=== PATIENT | female | born 1945 | race Caucasian/White ===

== ENCOUNTER 2020-08-12 09:06 | Outpatient (REF) | payer MEDICARE, SELFPAY ==
[2020-08-12 11:48] LABS: Anion Gap 15 (12-20); Blood Urea Nitrogen 26 mg/dL (9-16); Calcium 8.3 mg/dL (8.4-10.2); Carbon Dioxide 27 mmol/L (22-29); Chloride 103 mmol/L (96-108); Estimated Glomerular Filt Rate 37; Glucose Random 146 mg/dL (60-115); Potassium 4.9 mmol/L (3.3-5.1); Sodium 140 mmol/L (135-145)
[2020-08-12 13:03] LABS: Estimated Average Glucose 163 mg/dL; Hemoglobin A1C 203.0526 umol/L; Hemoglobin A1c % 7.3 %
[2020-08-13 21:52] LABS: LDL Cholesterol Direct 82 mg/dL (<100)
== END 2020-08-12 09:07 | disposition home or self-care (01) ==
LOC: HO.HMGCLDS 09:06
PROVIDERS: PCP Internal Medicine; Visit Provider Internal Medicine
DX: E03.9 Hypothyroidism, unspecified (principal); E78.9 Disorder of lipoprotein metabolism, unspecified; I10 Essential (primary) hypertension
CPT/HCPCS: 36415; 80048; 83036; 83721; 84443

== ENCOUNTER 2020-12-22 08:01 | Outpatient (REF) | payer MEDICARE, SELFPAY ==
[2020-12-22 11:40] LABS: Estimated Average Glucose 169 mg/dL; Hemoglobin A1c % 7.5 %
[2020-12-22 11:53] LABS: Alanine Aminotransferase 78 U/L (0-31); Albumin Level 4.2 g/dL (3.5-5.0); Alkaline Phosphatase 127 U/L (39-117); Anion Gap 16 (12-20); Aspartate Amino Transferase 51 U/L (5-31); Bilirubin Total 0.8 mg/dL (0.0-1.0); Blood Urea Nitrogen 26 mg/dL (9-16); Calcium 8.7 mg/dL (8.4-10.2); Carbon Dioxide 22 mmol/L (22-29); Chloride 105 mmol/L (96-108); Cholesterol 283 mg/dL; Estimated Glomerular Filt Rate 33; Glucose Fasting 147 mg/dL (60-99); HDL Cholesterol 42 mg/dL; LDL Cholesterol Calculated 193 mg/dl; Sodium 138 mmol/L (135-145); Total Protein 7.2 g/dL (6.5-8.0); Triglycerides 244 mg/dL
== END 2020-12-22 08:02 | disposition home or self-care (01) ==
LOC: HO.HMGCLDS 08:01
PROVIDERS: PCP Internal Medicine; Visit Provider Internal Medicine
DX: E03.9 Hypothyroidism, unspecified (principal); E13.9 Other specified diabetes mellitus without complications; E78.9 Disorder of lipoprotein metabolism, unspecified; I10 Essential (primary) hypertension
CPT/HCPCS: 36415; 80053; 80061; 83036; 84443

== ENCOUNTER → 2021-01-12 14:26 | Outpatient (BNVA) | payer MEDICARE, SELFPAY | PROVIDERS: PCP Internal Medicine; Referring Provider Internal Medicine; Visit Provider Internal Medicine Cardiovascular Disease | DX: I25.10 Atherosclerotic heart disease of native coronary artery without angina pectoris (principal); I10 Essential (primary) hypertension | CPT/HCPCS: 93005; 99212 ==

== ENCOUNTER 2021-01-14 16:19 | Outpatient (REF) | payer MEDICARE, SELFPAY | END 2021-01-14 16:20 | disposition home or self-care (01) | LOC: HO.LNP 16:19 | PROVIDERS: Visit Provider Hospitalist | DX: R30.0 Dysuria (principal) | CPT/HCPCS: 87086 ==

== ENCOUNTER 2021-11-01 08:38 | Outpatient (REF) | payer MEDICARE, SELFPAY ==
[2021-11-01 11:59] LABS: Estimated Average Glucose 137 mg/dL; Hemoglobin A1c % 6.4 %
[2021-11-01 12:13] LABS: TSH reflex Free T4 0.83 uIU/mL (0.32-4.0)
[2021-11-01 12:17] LABS: Alanine Aminotransferase 19 U/L (0-31); Albumin Level 4.1 g/dL (3.5-5.0); Alkaline Phosphatase 108 U/L (39-117); Anion Gap 11 (12-20); Aspartate Amino Transferase 23 U/L (5-31); Bilirubin Total 0.8 mg/dL (0.0-1.0); Blood Urea Nitrogen 20 mg/dL (9-16); Calcium 8.9 mg/dL (8.4-10.2); Carbon Dioxide 26 mmol/L (22-29); Chloride 105 mmol/L (96-108); Estimated Glomerular Filt Rate 46; Glucose Random 131 mg/dL (60-115); Potassium 4.2 mmol/L (3.3-5.1); Sodium 138 mmol/L (135-145)
== END 2021-11-01 08:39 | disposition home or self-care (01) ==
LOC: HO.HMGCLDS 08:38
PROVIDERS: PCP Internal Medicine; Visit Provider Internal Medicine
DX: E13.9 Other specified diabetes mellitus without complications (principal); E03.9 Hypothyroidism, unspecified; E78.9 Disorder of lipoprotein metabolism, unspecified; I10 Essential (primary) hypertension; R74.8 Abnormal levels of other serum enzymes; R79.89 Other specified abnormal findings of blood chemistry
CPT/HCPCS: 36415; 80053; 83036; 84443

== ENCOUNTER 2022-02-13 20:01 | Emergency (ER) | payer MEDICARE, SELFPAY ==
--- NOTE | ~2022-02-13 | US_ITS ---
EXAMINATION: US ABDOMEN LIMITED CLINICAL INFORMATION: Right-sided abdominal pain with elevated LFTs.. COMPARISON: CT abdomen pelvis from earlier this evening. TECHNIQUE: Real-time imaging of the gallbladder was requested. FINDINGS: The gallbladder is physiologically distended. Several small shadowing gallstones are present. There is a 1.8 cm echogenic nonshadowing focus contiguous with the gallbladder wall which either represents a prominent polyp or sludge ball. There is no gallbladder wall thickening appreciated. No pericholecystic fluid demonstrated. Negative sonographic Vanegas's sign. US/US abdomen limited IMPRESSION: -Cholelithiasis. There is no other ultrasound evidence to suggest acute cholecystitis. If clinically indicated, HIDA imaging can be obtained. -1.8 cm echogenic nonshadowing focus which appears contiguous with the gallbladder wall. This may represent a prominent polyp or possibly a sludge ball. Attention on follow-up imaging recommended.
--- NOTE | ~2022-02-13 | CT_ITS ---
CT/CT abdomen pelvis wo con IMPRESSION: 1. Bilateral nephrolithiasis without evidence of obstruction. 2. Distended gallbladder with cholelithiasis. 3. Other incidental findings described above. Fleischner guidelines were followed. EXAMINATION: CT ABDOMEN AND PELVIS WITHOUT CONTRAST CLINICAL INFORMATION: Right flank pain COMPARISON: Abdominal ultrasound 07/07/2015 TECHNIQUE: Multidetector volumetric imaging was performed from the superior aspect of the liver through the pubic symphysis. Sagittal and coronal reformatted images were obtained on the technologist's workstation. This CT examination was performed using dose optimization techniques as appropriate, variously including the following: *Automated exposure control *Adjustment of mA and/or kV according to patient size (this includes techniques or standardized protocols for targeted exams where dose is matched to indication/reason for exam; i.e. extremities or head) *Use of iterative reconstruction technique DLP: 891 mGy-cm FINDINGS: LUNG BASES: The visualized lung bases are unremarkable. A tiny pericardial effusion is present. Bibasilar scarring is present. LIVER, GALLBLADDER, AND BILIARY TREE: The liver is normal in size, shape, and attenuation. No focal hepatic lesion or biliary ductal dilatation is present. The gallbladder is distended with some tiny layering high density stones without pericholecystic inflammatory changes. Cholelithiasis was noted at the time of the 2014 ultrasound study. PANCREAS: Unremarkable. SPLEEN: Unremarkable. ADRENAL GLANDS: Unremarkable. KIDNEYS AND URETERS: The kidneys are normal in size, shape, and attenuation. Bilateral nephrolithiasis is present with multiple punctate-sized stones bilaterally. No hydronephrosis, hydroureter, or ureteral calculi seen. No perinephric stranding. BLADDER: Unremarkable. GASTROINTESTINAL TRACT: The small and large bowel are unremarkable. The appendix is unremarkable aside from the presence of an appendicolith at its base. Distally, it is filled with air and not obstructed. ABDOMINAL WALL: No significant hernia is appreciated. LYMPH NODES: Normal. VASCULAR: Unremarkable. PELVIC VISCERA: Normal anteverted uterus is present. An abnormal adnexal mass or free intraperitoneal fluid is not seen. OSSEOUS STRUCTURES: Degenerative changes are present throughout the spine with grade 1 anterolisthesis of L4 upon L5. No pars defects are seen.
[2022-02-13 20:08] VITALS: BP 165/67; BP 170/80; PULSE 75; PULSE 79; RESP 18; TEMP 37.1; O2SAT 97; O2SAT 99; BMI 34.5
--- NOTE | 2022-02-13 20:10 | ECG_ITS ---
Test Reason : cp Blood Pressure : / mmHG Vent. Rate : 077 BPM Atrial Rate : 077 BPM P-R Int : 144 ms QRS Dur : 090 ms QT Int : 378 ms P-R-T Axes : 039 015 113 degrees QTc Int : 427 ms Normal sinus rhythm Possible Inferior infarct , age undetermined Cannot rule out Anterior infarct , age undetermined T wave abnormality, consider lateral ischemia Abnormal ECG No previous ECGs available Referred By: Samanta Bonilla Electronically Signed By:KOLE RODRIGUEZ
--- NOTE | 2022-02-13 20:13 | ED_ITS ---
HPI - Abdominal Pain General Chief Complaint: Abdominal Pain Stated Complaint: back/abdominal pain Time Seen by Provider: 02/13/22 20:02 Source: patient and EMS Mode of arrival: EMS Limitations: no limitations History of Present Illness HPI narrative: Patient comes to the emergency room complaining of right-sided flank pain that started approximately 7 hours ago. Patient states that she has had kidney stones in the past, feels similar but this time she has no hematuria. Patient denies fever chills, complaining of nausea and vomiting, no diarrhea, no abdominal pain. Related Data Home Medications Medication Instructions Recorded Confirmed aspirin 81 mg tablet,delayed 162 mg PO DAILY 01/12/21 11/08/21 release (Adult Low Dose Aspirin) Previous Rx's Medication Instructions Recorded hydrochlorothiazide 12.5 mg capsule 12.5 mg PO DAILY #90 caps 06/08/21 Synthroid 88 mcg tablet 88 mcg PO DAILY 90 days #90 tabs 07/25/21 (levothyroxine) losartan 100 mg tablet 100 mg PO DAILY 90 days #90 tabs 12/05/21 atorvastatin 80 mg tablet 80 mg PO DAILY #90 tabs 12/25/21 metoprolol succinate 200 mg 200 mg PO DAILY #90 tabs 12/25/21 tablet,extended release 24 hr Allergies Allergy/AdvReac Type Severity Reaction Status Date / Time No Known Allergies Allergy Verified 02/13/22 20:08 Review of Systems Review of Systems Constitutional : No Weight loss, No Fever, No Chills, No Night Sweats, No Fatigue, No Malaise ENT/Mouth : No Hearing loss, No Ear Pain, No Nasal Congestion, No Sinus Pain, No Hoarseness, No sore throat, No Rhinorrhea, No Swallowing Difficulty Eyes: No Eye Pain, No Swelling, No Redness, No Foreign Body, No Discharge, No Vision Changes Cardiovascular : No Chest Pain, No SOB, No Dyspnea on Exertion, No Orthopnea, No Edema, No Palpitations Respiratory : No Cough, No Sputum, No Wheezing, No Smoke Exposure, No Dyspnea Gastrointestinal : Complaining of nausea and vomiting, No Diarrhea, No Constipation, No abdominal Pain, No Hematochezia, No Melena Genitourinary : no irregular bleeding, No Dysuria, No Urinary Frequency, No Hematuria, No Urinary Incontinence, No Urgency, complaining of right-sided Flank Pain, No Urinary Flow Changes, No Hesitancy Musculoskeletal : No joint pain, No Myalgias, No Joint Swelling Skin : No Skin Lesions, No rash Neuro : No Weakness, No Numbness, No Paresthesias, No Loss of Consciousness, No Dizziness, No Headache Psych : No Anxiety/Panic, No Depression, No SI/HI/AH/VH, No Social Issues, Heme/Lymph: No Bruising, No Bleeding,No Lymphadenopathy Endocrine : No Polyuria, No Polydipsia, No Temperature Intolerance [facility] Past Medical History Medical History CAD (coronary artery disease) Diabetes 1.5, managed as type 2 Hypertension, essential Hypothyroidism Lipid disorder Surgical History History of cataract surgery History of colonoscopy History of knee replacement Stented coronary artery Family History Family History Father HTN (hypertension) Myocardial infarction Mother No problems noted. Brother No problems noted. Sister No problems noted. Son No problems noted. Son No problems noted. Son No problems noted. Son No problems noted. Daughter No problems noted. Daughter No problems noted. Daughter No problems noted. Social History Social History Housing: House Alcohol intake: former Patient Tobacco Use Status: Former Tobacco user e-Cigarette/Vaping Use: Never Used Use of substances other than those prescribed or required for medical reasons: No Advance Directives: No Advance Directives Information Provided: Yes service: No Current occupational status: employed Cognitive needs: No Hearing needs: No Vision needs: Yes Physical Exam ED Vital Signs: Vital Signs - 24 hr 02/13/22 20:08 02/13/22 20:38 Temperature 98.7 F Pulse Rate 75 Respiratory Rate 18 22 H Blood Pressure 165/67 H Pulse Oximetry 97 Oxygen Delivery Method Room Air BMI result Body Mass Index 34.5 Const Other: Appearance: Alert. Oriented X3. No acute distress. Eyes: Pupils equal, round and reactive to light. ENT: Pharynx normal. Neck: Normal inspection. Neck supple. No lymph nodes noted. No crepitus CVS: Normal heart rate and rhythm. Pulses normal. Normal S1 and S2 Respiratory: No respiratory distress. Breath sounds normal. No Wheezing. No rales Abdomen: Soft and nontender. No rigidity. No distention. Tenderness to palpation the right lower quadrant and right CVA tenderness Skin: Skin warm and mildly diaphoretic. Normal skin color. Normal skin turgor. Extremities: No lower extremity edema. No Lacerations. No Rash Neuro: Oriented X 3. No motor deficit. No sensory deficit. Moving all extremities. No slurred speech. CN 2 through 12 grossly intact Psych: calm, cooperative, normal affect Course Course Course Narrative: Patient's labs and CT scan pending. Patient receiving IV fluids, morphine and Zofran. Patient states that the pain and the nausea/vomiting are well controlled. Patient likely has nephrolithiasis. Urinalysis, CT scan and chemistry pending. Sign-out given to Dr. Peter MACHUCA - Abdominal Pain Lab Data Result diagrams: 02/13/22 20:24 02/13/22 20:24 Labs: Lab Results 02/13/22 Range/Units 20:24 WBC 5.7 (4.8-10.8) X10*3/uL RBC 4.87 (4.20-5.50) X10*6/uL Hgb 14.6 (12.0-16.0) g/dl Hct 44.3 (37.0-47.0) % MCV 91.0 (80.0-98.0) fL MCH 30.0 (27.0-33.0) pg MCHC 33.0 (31.0-35.0) g/dl RDW 14.8 (11.0-16.0) % Plt Count 215 (160-400) X10*3/uL MPV 9.7 (9.4-12.3) fL Immature Gran % (Auto) 0.2 (0.0-0.4) % Neut % (Auto) 93.9 H (45-73) % Lymph % (Auto) 4.6 L (20-40) % Hodgeman % (Auto) 0.9 L (2-11) % Eos % (Auto) 0.2 (0-4) % Baso % (Auto) 0.2 (0-2) % Lymph # (Auto) 0.3 L (1.2-4.9) X10*3/uL Hodgeman # (Auto) 0.1 (0.1-1.2) X10*3/uL Eos # (Auto) 0.0 (0.0-0.4) X10*3/uL Baso # (Auto) 0.0 (0.0-0.2) X10*3/uL Abs Immat Gran (auto) 0.01 (0.00-0.03) X10*3/uL Absolute Neuts (auto) 5.4 (2.0-8.3) x10*3/uL Absolute Nucleated RBC 0.000 (0.0-0.012) X10*3/uL Nucleated RBC % (auto) 0.0 (0.0-0.2) /100WBC Smear Tech's Comments VERIFIED Discharge Plan Discharge Clinical Impression: Right flank pain Patient Disposition: Still a Patient Prescriptions: No Action hydrochlorothiazide 12.5 mg capsule 12.5 mg PO DAILY Qty: 90 3RF losartan 100 mg tablet 100 mg PO DAILY 90 Days Qty: 90 1RF atorvastatin 80 mg tablet 80 mg PO DAILY Qty: 90 3RF metoprolol succinate 200 mg tablet extended release 24 hr 200 mg PO DAILY Qty: 90 3RF levothyroxine [Synthroid] 88 mcg tablet 88 mcg PO DAILY 90 Days Qty: 90 1RF Rx Instructions: No substitution aspirin [Adult Low Dose Aspirin] 81 mg tablet,delayed release (DR/EC) 162 mg PO DAILY
[2022-02-13] MEDS: 0.9 % Sodium Chloride 1,000 ML 999 ML IVCONT (20:26)
[2022-02-13] MEDS: ondansetron HCL 4 MG/2 ML VIAL IVPUSH (20:36)
[2022-02-13 20:38] VITALS: RESP 22
[2022-02-13] MEDS: Morphine Sulfate 4 MG/ML CARTRIDGE IVPUSH (20:38)
--- NOTE | 2022-02-13 20:38 | PC.NURSE ---
20G IV placed left AC, labs drawn, NaCl running, medicated per provider order. pending CT.
[2022-02-13 20:47] LABS: Basophils Percent Auto 0.2 % (0-2); Eosinophils Percent Auto 0.2 % (0-4); Hematocrit 44.3 % (37.0-47.0); Hemoglobin 14.6 g/dl (12.0-16.0); Imm Gran Abs Auto 0.01 X10*3/uL (0.00-0.03); Imm Gran Pct Auto 0.2 % (0.0-0.4); Lymphocytes Absolute Auto 0.3 X10*3/uL (1.2-4.9); Lymphocytes Percent Auto 4.6 % (20-40); MANUAL DIFF FLAG SCAN; Mean Platelet Volume 9.7 fL (9.4-12.3); Monocytes Absolute Auto 0.1 X10*3/uL (0.1-1.2); Monocytes Percent Auto 0.9 % (2-11); Neutrophils Absolute Auto 5.4 x10*3/uL (2.0-8.3); Neutrophils Percent Auto 93.9 % (45-73); Platelet Count 215 X10*3/uL (160-400); Red Blood Count 4.87 X10*6/uL (4.20-5.50); Red Cell Distribution Width 14.8 % (11.0-16.0); SCAN SMEAR FLAG 1; White Blood Count 5.7 X10*3/uL (4.8-10.8)
[2022-02-13 21:08] LABS: SLIDE REVIEW VERIFIED
[2022-02-13 21:12] LABS: Alanine Aminotransferase 179 U/L (0-31); Albumin Level 3.8 g/dL (3.5-5.0); Alkaline Phosphatase 113 U/L (39-117); Anion Gap 16 (12-20); Aspartate Amino Transferase 275 U/L (5-31); Bilirubin Direct 1.5 mg/dL (0.0-0.5); Bilirubin Total 2.1 mg/dL (0.0-1.0); Blood Urea Nitrogen 20 mg/dL (9-16); Calcium 8.3 mg/dL (8.4-10.2); Carbon Dioxide 21 mmol/L (22-29); Chloride 107 mmol/L (96-108); Creatinine Clr Calc Pharmacy 39.7; Estimated Glomerular Filt Rate 42; Glucose Random 151 mg/dL (60-115); Lipase 51 U/L (8-78); Potassium 4.3 mmol/L (3.3-5.1); Sodium 140 mmol/L (135-145); Total Protein 6.6 g/dL (6.5-8.0)
[2022-02-13 23:02] LABS: Appearance Urine CLEAR; Color Urine DK YELLOW; Glucose Urine UA NEG (NEG); Leukocyte Esterase Urine NEG (NEG); Nitrite Urine NEG (NEG); PH 5.5 (5.0-8.0); Specific Gravity - Urine 1.025 (1.005-1.025); Urine Blood NEG (NEG); Urine Ketones 5 MG/DL (NEG); Urine Protein NEG (NEG-TRACE)
[2022-02-13 23:20] LABS: Alanine Aminotransferase 208 U/L (0-31); Albumin Level 3.7 g/dL (3.5-5.0); Alkaline Phosphatase 111 U/L (39-117); Aspartate Amino Transferase 301 U/L (5-31); Bilirubin Direct 1.8 mg/dL (0.0-0.5); Bilirubin Total 2.4 mg/dL (0.0-1.0); Total Protein 6.3 g/dL (6.5-8.0)
[2022-02-13 23:33] VITALS: BP 102/55; PULSE 86; RESP 20; O2SAT 96
--- NOTE | 2022-02-13 23:41 | PC.NURSE ---
pt a&ox3, vss, reporting small amount of pain in right lower abd, provider in room discussing treatment options.
[2022-02-13] MEDS: oxyCODONE HCl Immed Release 5 MG TABLET PO (23:50)
== END 2022-02-14 00:04 | disposition home or self-care (01) ==
PROVIDERS: Emergency Medicine; Emergency Provider Emergency Medicine; PCP Internal Medicine
DX: R10.9 Unspecified abdominal pain (principal); N20.0 Calculus of kidney; I10 Essential (primary) hypertension; E13.9 Other specified diabetes mellitus without complications; E78.5 Hyperlipidemia, unspecified; Z87.442 Personal history of urinary calculi; Z87.891 Personal history of nicotine dependence
CPT/HCPCS: 36415; 74176; 76705; 80048; 80076; 81003; 83690; 85025; 93005; 96361; 96374; 96375; 99285; J2270; J2405

== ENCOUNTER → 2022-02-15 11:06 | Outpatient (BNVA) | payer MEDICARE, SELFPAY | PROVIDERS: PCP Internal Medicine; Visit Provider Surgery | DX: K80.20 Calculus of gallbladder without cholecystitis without obstruction (principal); R74.8 Abnormal levels of other serum enzymes | CPT/HCPCS: 99202 ==

== ENCOUNTER 2022-03-05 05:50 | Day surgery (SDC) | payer MEDICARE, SELFPAY ==
[2022-02-20 15:00] VITALS: BMI 34.9
[2022-03-05] VITALS (11 sets, daily range): BP systolic 152–190; BP diastolic 54–72; PULSE 46–56; RESP 16–24; TEMP 36.2–36.4; O2SAT 97–100
[2022-03-05] MEDS: Lactated Ringers 1,000 ML 50 ML IVCONT (06:32)
[2022-03-05 06:34] LABS: Glucose, Whole Blood 99 mg/dL (60-115)
--- NOTE | 2022-03-05 07:25 | PC.NURSE ---
anesthesia made aware of high bp. no new orders.
--- NOTE | 2022-03-05 09:08 | W.PM.OPN ---
Operative Note Operative Note Date of Service: 03/05/22 Narrative: Preoperative diagnosis: Biliary colic Postoperative diagnosis: Same Procedure: Laparoscopic cholecystectomy Surgeon: Danis Alatorre MD Information Assoc: [facility] Anesthesia: General endotracheal Indications for procedure:76 year old female with complaints of pain in the epigastrium and RUQ found to have small gallstones and sludge in the gallbladder Operative findings:Chronically inflamed gallbladder, small gallstones Specimen: gallbladder Estimated blood loss:<1 ml Complications: none Procedure details: Patient was brought to the OR and placed in a supine position. After administering general anesthesia the patient's abdomen was prepped with ChloraPrep and draped in a sterile fashion. Local anesthesia consisting of 0.5% Sensorcaine without epinephrine was infiltrated in a periumbilical region. A 5 mm incision was made above the umbilicus in a transverse fashion. The Veress needle was then inserted while elevating abdominal cavity with towel clips. After positive drop test the abdomen was insufflated to a pressure of 15 mm of mercury. The Veress needle was then removed and a 5 mm trocar inserted. The camera was inserted in the abdomen explored. A 12 mm trocar was then placed in the epigastrium. Two 5 mm trocars placed in the right upper quadrant by the nursing home assistant. The patient was placed in reverse Trendelenburg positioning and rotated to the left. The gallbladder was grasped with the fundus and retracted cephalad by the nursing home assistant. The infundibulum was then grasped and retracted away from the liver bed, also by the nursing home assistant. The Dolphin dissected was then used by the surgeon to dissect the peritoneum off the infundibulum to reveal the junction with the cystic duct. Cystic artery was noted slightly medial and posterior to the cystic duct. After obtaining a critical view the cystic duct was doubly clipped and divided. The cystic artery was then doubly clipped and divided. The gallbladder was then dissected off the liver bed using electrocautery with an L hook. Hemostasis was assured all times using the electrocautery. When the gallbladder is completely dissected off the liver bed was placed in an Endo-Catch bag and brought out through the epigastric incision. The gallbladder was sent to pathology for further examination. The abdomen was then re-examined. The liver bed was irrigated and suctioned dry. No bleeding or bile leak could be identified. CO2 was then evacuated and all trocars removed. Fascia was closed at the epigastric incision using a [id number] 0 Polysorb suture. Skin was closed in all incisions using a subcuticular 4 0 Polysorb suture by both the surgeon and nursing home assistant. Sterile dressings consisting of Steri-Strips, 2 x 2 gauze, and Tegaderm were then applied. The patient tolerated the procedure well. Sponge instrument and needle counts reported as correct. The patient was transferred to PACU in stable condition.
--- NOTE | 2022-03-05 09:10 | MHC.SHP ---
Pre-Procedural Eval Section A Date of Service: 03/05/22 The patient is an INPATIENT: No Changes since office visit: Yes Patient answered all questions; No Cold of Flu in the past 2 weeks, No New Medical Problems and No Changes in Medication The History & Physical has been completed within 30 days and I have reviewed it.: Yes Section B Chief Complaint: calculus of gallbladder Allergies: Allergies Allergy/AdvReac Type Severity Reaction Status Date / Time metformin AdvReac Intermediate Diarrhea Verified 03/05/22 06:20 Plan Diagnosis/Plan: Unchanged I have reviewed the history and physical and performed a pertinent physical examination on my patient. No changes have occurred unless specified.
[2022-03-05] MEDS: oxyCODONE HCl Immed Release 5 MG TABLET PO (09:41)
--- NOTE | 2022-03-05 09:42 | HO.ANESPROP2 ---
[facility] Active Problems Active Problems: All Active Problems (Updated 03/02/22 @ 13:37 by Tyler Jones MD) Gallbladder sludge (Acute) Pre-op evaluation (Acute) LFT elevation (Acute) Elevated creatine kinase (Acute) Dysuria (Acute) Hypertensive nephropathy (Acute) CAD (coronary artery disease) (Acute) Diabetes 1.5, managed as type 2 (Acute) Hypothyroidism (Acute) Lipid disorder (Acute) Hypertension, essential (Acute) Past Medical History Medical History Abnormal ECG CAD (coronary artery disease) Diabetes 1.5, managed as type 2 Hypertension, essential Hypothyroidism Lipid disorder Myocardial infarction Renal calculi Family History Family History Father HTN (hypertension) Myocardial infarction Mother No problems noted. Brother No problems noted. Sister No problems noted. Son No problems noted. Son No problems noted. Son No problems noted. Son No problems noted. Daughter No problems noted. Daughter No problems noted. Daughter No problems noted. Family history of problems with anesthesia: No Surgical History Surgical History History of cataract surgery History of colonoscopy History of knee replacement Stented coronary artery History of Problems with Anesthesia: No Social History Social History Household Members Other:: and grandson Housing: House Are you a primary hearing care professional to a significant other at home: Yes ( is homebound) Do you presently have visiting nurse or other home services: No Alcohol intake: former Patient Tobacco Use Status: Former Tobacco user Quit Date: as teenager Tobacco use type: Cigarette e-Cigarette/Vaping Use: Never Used Use of substances other than those prescribed or required for medical reasons: No Have you been hit, kicked, punched, or otherwise hurt by someone within the past year? If so, by whom?: No Are you DNR?: No Advance Directives: No Advance Directives Information Provided: Yes (brochure mailed) Advance Directives on File: No Recently lost weight without trying: No Eating poorly because of decreased appetite: No Nutrition Risks: Surgical patient >75years Poor oral hygiene: No (has upper & lower partials) service: No Current occupational status: employed Cognitive needs: No Hearing needs: No Vision needs: Yes Meds Allergies Allergy/AdvReac Type Severity Reaction Status Date / Time metformin AdvReac Intermediate Diarrhea Verified 03/05/22 06:20 Active Medications: Current Medications Fentanyl (Fentanyl Citrate/Pf 100 Mcg/2 Ml Vial) 25 mcg IVPUSH Q5M PRN; Protocol PRN Reason: Pain, Moderate (Pain Scale 4-6 Lactated Ringer's (Lr) 1,000 mls @ 50 mls/hr IVCONT .Q20H DONY Last Admin: 03/05/22 06:32 Dose: 50 mls/hr Lactated Ringer's (Lr) 1,000 mls @ 100 mls/hr IVCONT .Q10H DONY Ondansetron HCl (Ondansetron Hcl 4 Mg/2 Ml Vial) 4 mg IVPUSH ONCE PRN PRN Reason: Nausea and Vomiting Home Medications Medication Instructions Recorded Confirmed Last Taken Type aspirin 81 mg tablet,delayed 162 mg PO DAILY 01/12/21 02/20/22 03/03/22 History release (Adult Low Dose Aspirin) Exam Exam Date and Time: March 05, 2022 0942 Height,Weight and Vital Signs: Height 5 ft 3 in Weight 89.358 kg Last Vital Signs Temp 97.1 F 03/05/22 09:14 Pulse 56 03/05/22 09:29 Resp 20 03/05/22 09:29 BP 152/66 H 03/05/22 09:29 Pulse Ox 99 03/05/22 09:29 O2 Del Method 03/05/22 09:29 O2 Flow Rate 2 03/05/22 09:19 Pertinent Lab Results Pertinent Lab Results: Laboratory Tests 03/05/22 06:30 POC Glucose 99 Airway Mallampati Class: III TM Dist: >3cm Neck ROM: Full Partial: Upper and Lower Loose/Missing/Broken Teeth: Yes, Upper and Lower Assessment and Plan Assessment Anesthesia Assessment: Anesthesia Plan Discussed and Chart Reviewed Final Anesthetic Review Family History of Problems with Anesthesia: No History of Problems with Anesthesia: No NPO: Yes ASA Class: III Final Preanesthetic Review: No Changes in Pt Med Stat, Meds/Allgs Chart Reviewed, Consent Obtained/Reviewed and Anes Risks/Benef Reviewed Patient Risk: Intermediate Procedure Risk: Intermediate Anesthetic Plan Anesthetic Plan: GA Disposition: Standard PACU
[2022-03-05] MEDS: fentaNYL citrate/PF 100 MCG/2 ML VIAL 25 MCG IVPUSH ×2 (09:44→09:49)
== END 2022-03-05 11:00 | disposition home or self-care (01) ==
PROVIDERS: PCP Internal Medicine; Visit Provider Surgery
PROC: 0FT44ZZ Resection of Gallbladder, Percutaneous Endoscopic Approach (ICD-10-PCS; CPT 47562; principal; 2022-03-05 07:30)
DX: K80.12 Calculus of gallbladder with acute and chronic cholecystitis without obstruction (principal); K82.8 Other specified diseases of gallbladder; I25.10 Atherosclerotic heart disease of native coronary artery without angina pectoris; Z98.61 Coronary angioplasty status; E13.9 Other specified diabetes mellitus without complications; I10 Essential (primary) hypertension; E03.9 Hypothyroidism, unspecified; E78.9 Disorder of lipoprotein metabolism, unspecified; R74.8 Abnormal levels of other serum enzymes; Z79.82 Long term (current) use of aspirin; Z79.899 Other long term (current) drug therapy; Z88.8 Allergy status to other drugs, medicaments and biological substances; Z87.891 Personal history of nicotine dependence
CPT/HCPCS: 47562; 82947; 88304; J0330; J1100; J2250; J2405; J2795; J3010

== ENCOUNTER 2022-07-14 10:07 | Outpatient (REF) | payer MEDICARE, SELFPAY ==
[2022-07-14 11:09] LABS: MANUAL DIFF FLAG NO
[2022-07-14 11:12] LABS: Basophils Absolute Auto 0.1 X10*3/uL (0.0-0.2); Basophils Percent Auto 0.8 % (0-2); Eosinophils Absolute Auto 0.3 X10*3/uL (0.0-0.4); Eosinophils Percent Auto 4.4 % (0-4); Hemoglobin 14.8 g/dl (12.0-16.0); Imm Gran Abs Auto 0.02 X10*3/uL (0.00-0.03); Imm Gran Pct Auto 0.3 % (0.0-0.4); Lymphocytes Absolute Auto 1.8 X10*3/uL (1.2-4.9); Lymphocytes Percent Auto 28.1 % (20-40); Mean Corpuscular HGB Conc 32.2 g/dl (31.0-35.0); Mean Corpuscular Hemoglobin 30.4 pg (27.0-33.0); Mean Corpuscular Volume 94.5 fL (80.0-98.0); Monocytes Absolute Auto 0.5 X10*3/uL (0.1-1.2); Monocytes Percent Auto 7.5 % (2-11); Neutrophils Absolute Auto 3.8 x10*3/uL (2.0-8.3); Neutrophils Percent Auto 58.9 % (45-73); Platelet Count 262 X10*3/uL (160-400); Red Blood Count 4.87 X10*6/uL (4.20-5.50); Red Cell Distribution Width 13.3 % (11.0-16.0); White Blood Count 6.4 X10*3/uL (4.8-10.8)
[2022-07-14 11:18] LABS: Estimated Average Glucose 120 mg/dL; Hemoglobin A1C 154.1947 umol/L; Hemoglobin A1c % 5.8 %
[2022-07-14 11:25] LABS: Alanine Aminotransferase 18 U/L (0-31); Albumin Level 4.3 g/dL (3.5-5.0); Alkaline Phosphatase 91 U/L (39-117); Anion Gap 13 (12-20); Aspartate Amino Transferase 24 U/L (5-31); Bilirubin Total 0.7 mg/dL (0.0-1.0); Blood Urea Nitrogen 21 mg/dL (9-16); Calcium 9.1 mg/dL (8.4-10.2); Carbon Dioxide 27 mmol/L (22-29); Chloride 105 mmol/L (96-108); Estimated Glomerular Filt Rate 40; Glucose Random 115 mg/dL (60-115); Potassium 4.9 mmol/L (3.3-5.1); Sodium 140 mmol/L (135-145); Total Protein 7.5 g/dL (6.5-8.0)
[2022-07-14 11:48] LABS: TSH reflex Free T4 3.65 uIU/mL (0.32-4.0)
== END 2022-07-14 10:08 | disposition home or self-care (01) ==
LOC: HO.HMGCLDS 10:07
PROVIDERS: PCP Internal Medicine; Visit Provider Internal Medicine
DX: E13.9 Other specified diabetes mellitus without complications (principal); E03.9 Hypothyroidism, unspecified; E78.9 Disorder of lipoprotein metabolism, unspecified; I10 Essential (primary) hypertension; R79.89 Other specified abnormal findings of blood chemistry
CPT/HCPCS: 36415; 80053; 83036; 84443; 85025

== ENCOUNTER 2023-05-21 09:51 | Outpatient (AMB) | payer MEDICARE, SELFPAY ==
--- NOTE | 2023-05-21 09:52 | A.OFFPC_ITS ---
Vital Signs 05/21/23 10:02 Height 5 ft 3 in Weight 200 lb BMI 35.4 BP 132/78 Blood Pressure Location Lt brachial Position Sitting Pulse 62 Pulse Source Pulse Oximeter Pulse Oximetry (%) 98 Oxygen Delivery Method Room Air Intake Visit Reasons: 4 month follow up Accompanied by: Spouse Allergies metformin Adverse Reaction (Intermediate, Verified 11/16/22 15:01) Diarrhea Medication List - Last Reconciled 05/21/23 by Tyler Jones MD aspirin (Adult Low Dose Aspirin) 162 mg PO DAILY hydrochlorothiazide 25 mg PO QAM losartan 100 mg PO DAILY metoprolol succinate ER 200 mg PO DAILY Synthroid (levothyroxine) 88 mcg PO DAILY 90 days NS Tobacco use date assessed: 05/21/23 Fall risk assessment: No Falls in past year Last assessed Fall Risk: 05/21/23 Dental Screening Dental Screen Date: 05/21/23 Did you have a dental visit in the last 12 months?: Yes Did you have a dental problem in the last 6 months where you did not have access to dental care?: No Was dental information given to patient?: Patient has dentist HPI 4 month follow up HPI Details Patient is 77-year-old female Patient is taking care of her who is almost wheelchair bound She comes in every 6 months with her for follow-up Patient has been stable taking all her medications offer no new complaints She has not seen Cardiology in a while, she is requesting if I can send cardiac medications She is on metoprolol which I have sent for the patient Her blood pressure is stable today at 132/78, patient is on losartan 100 mg, and hydrochlorothiazide 25 mg She is tolerating medications no side effects Patient is diet-controlled diabetic , hemoglobin A1c has been stable Hypothyroidism: TSH is stable with Synthroid 88 mcg. BMI is elevated at 35.4 patient has always been heavy And have difficulty losing weight She will return in 6 month for follow-up with her who is also a patient in our clinic [facility] Medical History Abnormal ECG Myocardial infarction Renal calculi CAD (coronary artery disease) Diabetes 1.5, managed as type 2 Hypothyroidism Lipid disorder Hypertension, essential Surgical History Hx laparoscopic cholecystectomy (03/05/22) Stented coronary artery History of knee replacement History of colonoscopy History of cataract surgery Family History Father HTN (hypertension) Myocardial infarction Mother No problems noted. Brother No problems noted. Sister No problems noted. Son No problems noted. Son No problems noted. Son No problems noted. Son No problems noted. Daughter No problems noted. Daughter No problems noted. Daughter No problems noted. Social History Household Members Other:: and grandson Housing: House Are you a primary certified social workers in health care to a significant other at home: Yes ( is homebound) Do you presently have visiting nurse or other home services: No Alcohol intake: former Patient Tobacco Use Status: Former Tobacco user Quit Date: as teenager Tobacco use type: Cigarette e-Cigarette/Vaping Use: Never Used service: No Current occupational status: employed Cognitive needs: No Hearing needs: No Vision needs: Yes Questionnaire PHQ-9 Over the last 2 weeks, how often have you been bothered by any of the following problems? 1. Little interest or pleasure in doing things: not at all 2. Feeling down, depressed, or hopeless: not at all 3. Trouble falling or staying asleep, or sleeping too much: several days 4. Feeling tired or having little energy: not at all 5. Poor appetite or overeating: not at all 6. Feeling bad about yourself - or that you are a failure or have let yourself or your family down: not at all 7. Trouble concentrating on things, such as reading the newspaper or watching television: not at all 8. Moving or speaking so slowly that other people could have noticed. Or the opposite - being so fidgety or restless that you have been moving around a lot more than usual: not at all 9. Thoughts that you would be better off or of hurting yourself in some way: not at all Total score: 1 Depression Screening Interpretation: Negative Depression Screening Done: Yes 45415 - PHQ-9 Billing: Yes Source: Developed by Drs. Willard Nathan, Baylee Yuen, Brock Hennessy and colleagues, with an educational floresita from [employer]. Thrive Questionnaire Date Thrive assessed: 05/21/23 I am a: Patient What is your living situation today?: I have a steady place to live Within the past 12 months, did the food you bought not last and you didn't have the money to get more?: Never true Within the past 12 months, did you worry whether your food would run out before you got money to buy more?: Never true Do you have trouble paying for medicines?: No Do you have trouble getting transportation to medical appointments?: No Do you have trouble paying your heating and electricity bill?: No Do you have trouble taking care of your child, family member or friend?: No Do you have trouble with day-to-day activities such as bathing, preparing meals, shopping, managing finances, etc.?: No Are you currently unemployed and looking for a job?: No Are you interested in more education?: No Please select the resources that you would like help with: None Currently or been in a relationship where the following occur: no concerns reported JERRY-7 AMB Questionnaire JERRY-7 Date JERRY - 7 assessed: 05/21/23 Feeling nervous, anxious, or on edge: 0 = Not at all Not being able to stop or control worryin = Not at all Worrying too much about different things: 0 = Not at all Trouble relaxin = Not at all Being so restless that it is hard to sit still: 0 = Not at all Becoming easily annoyed or irritable: 0 = Not at all Feeling afraid as if something awful might happen: 0 = Not at all Total JERRY-7 score (0-4 normal; 5-9 mild; 10-14 moderate; 15-21 severe): 0 Source: Developed by Drs. Willard Nathan, Baylee Yuen, Brock Hennessy and colleagues, with an educational floresita from [employer]. JERRY-7 Assessment Billing JERRY-7 Assessment Tool: JERRY-7 Assessment 39242 Review of Systems Const Denies chills and Denies fever(s) ENT Denies epistaxis and Denies nasal discharge Card Denies chest pain Resp Denies chest congestion, Denies cough and Denies hemoptysis GI Denies diarrhea and Denies nausea Skin/Breast Denies rash Neuro Reports no additional complaints Psych Reports no additional complaints Endo Reports no additional complaints Physical exam (Primary Care) Vital Signs: Last Vital Signs Pulse 62 05/21/23 10:02 BP 132/78 05/21/23 10:02 Pulse Ox 98 05/21/23 10:02 Oxygen Delivery Method Room Air 05/21/23 10:02 BMI result Body Mass Index 35.4 Tobacco/Smoking Status: Tobacco use Status Tobacco use date assessed 05/21/23 05/21/23 10:03 Patient Tobacco Use Status Former Tobacco user 05/21/23 09:52 Tobacco use type Cigarette 05/21/23 09:52 e-Cigarette/Vaping Use Never Used 05/21/23 09:52 PHQ-9: PHQ-9 Score PHQ-9: Total score 1 05/21/23 10:19 Depression Screening Interpretation: Negative Thrive Assessment: Date of Thrive Assessment Date Thrive assessed 05/21/23 05/21/23 10:05 Currently or been in a relationship where the following occur: no concerns reported Const General: cooperative, comfortable and no acute distress Orientation/consciousness: patient oriented x3 HENMT Head: Yes normocephalic Eyes General: appearance normal, both eyes and all related structures Neck Neck: Yes supple Resp Effort & Inspection: normal respiratory effort, no cough and no stridor Cardio Rhythm: regular rhythm Heart sounds: S1 normal heart sound present and S2 normal heart sound present Skin General skin exam: turgor normal Neuro General: patient oriented x3, tone normal and moves all extremities Extrem Right lower extremity: no edema Left lower extremity: no edema Assessment and Plan Assessment & Plan (1) Hypertension, essential: Code(s): I10 - Essential (primary) hypertension (2) Lipid disorder: Code(s): E78.9 - Disorder of lipoprotein metabolism, unspecified (3) Hypothyroidism: Code(s): E03.9 - Hypothyroidism, unspecified Qualifiers: Hypothyroidism type: other Qualified Code(s): E03.8 - Other specified hypothyroidism (4) Diabetes 1.5, managed as type 2: Comment: dx~2013-does not check glucose @ home-diet controlled-previously on metformin but had adverse reaction Code(s): E13.9 - Other specified diabetes mellitus without complications (5) CAD (coronary artery disease): Comment: RCA drug-eluting stent. Mid LAD 80% disease, stable without anginal symptoms. Treated medically Code(s): I25.10 - Atherosclerotic heart disease of [place] coronary artery without angina pectoris Qualifiers: Associated angina: without angina Coronary Disease-Associated Artery/Lesion type: [place] artery [place] vs. transplanted heart: [place] heart Qualified Code(s): I25.10 - Atherosclerotic heart disease of [place] coronary artery without angina pectoris (6) Hypertensive nephropathy: Code(s): I12.9 - Hypertensive chronic kidney disease with stage 1 through stage 4 chronic kidney disease, or unspecified chronic kidney disease (7) LFT elevation: Code(s): R79.89 - Other specified abnormal findings of blood chemistry Plan Patient is 77-year-old female Patient is taking care of her who is almost wheelchair bound She comes in every 6 months with her for follow-up Patient has been stable taking all her medications offer no new complaints She has not seen Cardiology in a while, she is requesting if I can send cardiac medications She is on metoprolol which I have sent for the patient She has coronary artery disease without angina and is doing well Her blood pressure is stable today at 132/78, patient is on losartan 100 mg, and hydrochlorothiazide 25 mg She is tolerating medications no side effects Patient is diet-controlled diabetic , hemoglobin A1c has been stable Hypothyroidism: TSH is stable with Synthroid 88 mcg. BMI is elevated at 35.4 patient has always been heavy And have difficulty losing weight She will return in 6 month for follow-up with her who is also a patient in our clinic Orders: Orders Hemoglobin A1c Today E03.9 - Hypothyroidism, unspecified, E13.9 - Other specified diabetes mellitus without complications, E78.9 - Disorder of lipoprotein metabolism, unspecified, I10 - Essential (primary) hypertension, I12.9 - Hypertensive chronic kidney disease with stage 1 through stage 4 chronic kidney disease, or unspecified chronic kidney disease, I25.10 - Atherosclerotic heart disease of [place] coronary artery without angina pectoris, R79.89 - Other specified abnormal findings of blood chemistry Complete Blood Count Auto Diff Today E03.9 - Hypothyroidism, unspecified, E13.9 - Other specified diabetes mellitus without complications, E78.9 - Disorder of lipoprotein metabolism, unspecified, I10 - Essential (primary) hypertension, I12.9 - Hypertensive chronic kidney disease with stage 1 through stage 4 chronic kidney disease, or unspecified chronic kidney disease, I25.10 - Atherosclerotic heart disease of [place] coronary artery without angina pectoris, R79.89 - Other specified abnormal findings of blood chemistry Microalbumin, Random (w Creat) Today E03.9 - Hypothyroidism, unspecified, E13.9 - Other specified diabetes mellitus without complications, E78.9 - Disorder of lipoprotein metabolism, unspecified, I10 - Essential (primary) hypertension, I12.9 - Hypertensive chronic kidney disease with stage 1 through stage 4 chronic kidney disease, or unspecified chronic kidney disease, I25.10 - Atherosclerotic heart disease of [place] coronary artery without angina pectoris, R79.89 - Other specified abnormal findings of blood chemistry Comprehensive [place]. Panel Fast Today E78.9 - Disorder of lipoprotein metabolism, unspecified, I10 - Essential (primary) hypertension TSH reflex Free T4 Today E03.9 - Hypothyroidism, unspecified Lipid Panel Today E78.9 - Disorder of lipoprotein metabolism, unspecified, I10 - Essential (primary) hypertension Medications: Changed From losartan Must call and make appointment with Dr. Salinas for 2022 for any future refills; call [phone]. Thank you 100 mg PO DAILY 90 tabs 1RF To losartan 100 mg PO DAILY 90 tabs 1RF From metoprolol succinate ER OVERDUE FOR APPT. PLEASE CALL [phone] TO SCHEDULE FOLLOW UP SO WE CAN CONTINUE REFILLING YOUR MEDICATIONS. 200 mg PO DAILY 30 tabs 0RF To metoprolol succinate ER 200 mg PO DAILY 90 tabs 3RF Refilled Synthroid (levothyroxine) No substitution 88 mcg PO DAILY 90 tabs 3RF 90 days NS Coding Level of Care Code Est Pt Level 4 (29488) Diagnoses Hypertension, essential I10 Lipid disorder E78.9 Other specified hypothyroidism E03.8 Hypothyroidism type: other Diabetes 1.5, managed as type 2 E13.9 Coronary artery disease involving [place] coronary artery of [place] heart without angina pectoris I25.10 Associated angina: without angina Coronary Disease-Associated Artery/Lesion type: [place] artery [place] vs. transplanted heart: [place] heart Hypertensive nephropathy I12.9 LFT elevation R79.89 Additional Codes JERRY-7 Assessment Billing - JERRY-7 Assessment Tool: JERRY-7 Assessment [id number] ([id number])
[2023-05-21 10:02] VITALS: BP 132/78; PULSE 62; O2SAT 98; BMI 35.4
== END 2023-05-21 10:29 | disposition home or self-care (01) ==
PROVIDERS: Visit Provider Internal Medicine
DX: I10 Essential (primary) hypertension (principal); E78.9 Disorder of lipoprotein metabolism, unspecified; E03.8 Other specified hypothyroidism; E13.9 Other specified diabetes mellitus without complications; I25.10 Atherosclerotic heart disease of native coronary artery without angina pectoris; R79.89 Other specified abnormal findings of blood chemistry
CPT/HCPCS: 99214

== ENCOUNTER 2023-05-21 10:31 | Outpatient (REF) | payer MEDICARE, SELFPAY ==
[2023-05-21 13:26] LABS: MANUAL DIFF FLAG NO
[2023-05-21 14:01] LABS: Estimated Average Glucose 140 mg/dL; Hemoglobin A1c % 6.5 % (<6.0)
[2023-05-21 14:09] LABS: Basophils Absolute Auto 0.1 X10*3/uL (0.0-0.2); Basophils Percent Auto 0.8 % (0-2); Eosinophils Absolute Auto 0.2 X10*3/uL (0.0-0.4); Eosinophils Percent Auto 3.6 % (0-4); Hematocrit 47.5 % (37.0-47.0); Hemoglobin 15.3 g/dl (12.0-16.0); Imm Gran Abs Auto 0.02 X10*3/uL (0.00-0.03); Imm Gran Pct Auto 0.3 % (0.0-0.4); Lymphocytes Absolute Auto 1.3 X10*3/uL (1.2-4.9); Lymphocytes Percent Auto 20.2 % (20-40); Mean Corpuscular HGB Conc 32.2 g/dl (31.0-35.0); Mean Corpuscular Hemoglobin 30.1 pg (27.0-33.0); Mean Corpuscular Volume 93.5 fL (80.0-98.0); Mean Platelet Volume 10.1 fL (9.4-12.3); Monocytes Absolute Auto 0.5 X10*3/uL (0.1-1.2); Monocytes Percent Auto 7.4 % (2-11); Neutrophils Absolute Auto 4.4 x10*3/uL (2.0-8.3); Neutrophils Percent Auto 67.7 % (45-73); Platelet Count 273 X10*3/uL (160-400); Red Blood Count 5.08 X10*6/uL (4.20-5.50); Red Cell Distribution Width 14.2 % (11.0-16.0); White Blood Count 6.5 X10*3/uL (4.8-10.8)
[2023-05-21 14:28] LABS: Alanine Aminotransferase 44 U/L (0-31); Albumin Level 4.3 g/dL (3.5-5.0); Alkaline Phosphatase 84 U/L (39-117); Anion Gap 13 (12-20); Aspartate Amino Transferase 38 U/L (5-31); Bilirubin Total 0.6 mg/dL (0.0-1.0); Blood Urea Nitrogen 17 mg/dL (9-16); Carbon Dioxide 26 mmol/L (22-29); Chloride 104 mmol/L (96-108); Cholesterol 332 mg/dL (<200); Estimated Glomerular Filt Rate 37; Glucose Fasting 128 mg/dL (60-99); Glucose Random 128 mg/dL (60-115); HDL Cholesterol 50 mg/dL (>40); LDL Cholesterol Calculated 236 mg/dL (<100); Potassium 4.5 mmol/L (3.3-5.1); Sodium 138 mmol/L (135-145); TSH reflex Free T4 3.46 uIU/mL (0.32-4.0); Total Protein 7.8 g/dL (6.5-8.0); Triglycerides 234 mg/dL (<150)
[2023-05-21 14:48] LABS: Microalbum/Creatinine Ratio Ur 21.1 ug/mg cr (<30)
== END 2023-05-21 10:32 | disposition home or self-care (01) ==
LOC: HO.HMGCLDS 10:31
PROVIDERS: PCP Internal Medicine; Visit Provider Internal Medicine
DX: E78.9 Disorder of lipoprotein metabolism, unspecified (principal); E03.9 Hypothyroidism, unspecified; I25.10 Atherosclerotic heart disease of native coronary artery without angina pectoris; I12.9 Hypertensive chronic kidney disease with stage 1 through stage 4 chronic kidney disease, or unspecified chronic kidney disease; E11.22 Type 2 diabetes mellitus with diabetic chronic kidney disease; N18.9 Chronic kidney disease, unspecified; R79.89 Other specified abnormal findings of blood chemistry
CPT/HCPCS: 36415; 80053; 80061; 82043; 82570; 83036; 84443; 85025

== ENCOUNTER 2023-11-19 09:50 | Outpatient (AMB) | payer MEDICARE, SELFPAY ==
[2023-11-19 09:52] VITALS: BP 128/76; PULSE 69; O2SAT 96; BMI 36.6
--- NOTE | 2023-11-19 09:52 | MHC.PC.OV ---
Vital Signs 11/19/23 09:52 Height 5 ft 3 in Weight 206 lb 8 oz BMI 36.6 BP 128/76 Blood Pressure Location Lt brachial Pulse 69 Pulse Source Pulse Oximeter Pulse Oximetry (%) 96 Oxygen Delivery Method Room Air Intake Visit Reasons: 6 month fu Allergies metformin Adverse Reaction (Intermediate, Verified 11/19/23 09:53) Diarrhea Medication List - Last Reconciled 11/19/23 by Tyler Jones MD aspirin (Adult Low Dose Aspirin) 162 mg PO DAILY losartan 100 mg PO DAILY metoprolol succinate ER 200 mg PO DAILY Synthroid (levothyroxine) 88 mcg PO DAILY 90 days NS Tobacco use date assessed: 11/19/23 Fall risk assessment: No Falls in past year Last assessed Fall Risk: 11/19/23 Dental Screening Dental Screen Date: 11/19/23 Did you have a dental visit in the last 12 months?: Yes Did you have a dental problem in the last 6 months where you did not have access to dental care?: No Was dental information given to patient?: Patient has dentist HPI 6 month fu HPI Details Patient is 77-year-old female Patient is taking care of her who is almost wheelchair bound She comes in every 6 months with her for follow-up Patient tells me that she has developed an urge incontinence however she is dealing with the problem just fine And do not want to take any medications Patient has been stable taking all her medications offer no new complaints She has not seen Cardiology in a while, all her cardiac medications are from PCP office Patient does not want to see Cardiology anymore She has coronary artery disease without angina Her blood pressure is stable , metoprolol 200 mg, and losartan 100 mg She is tolerating medications no side effects Patient is diet-controlled diabetic , hemoglobin A1c has been stable, it is 6.9 today Patient says that she drinks everett tyson regular and she does not want to stop Hypothyroidism: TSH is stable with Synthroid 88 mcg. BMI is elevated having difficulty losing weight Patient will have labs done today She will return in 6 month for follow-up with her [facility] Medical History Abnormal ECG Myocardial infarction Renal calculi CAD (coronary artery disease) Diabetes 1.5, managed as type 2 Hypothyroidism Lipid disorder Hypertension, essential Surgical History Hx laparoscopic cholecystectomy (03/05/22) Stented coronary artery History of knee replacement History of colonoscopy History of cataract surgery Family History Father HTN (hypertension) Myocardial infarction Mother No problems noted. Brother No problems noted. Sister No problems noted. Son No problems noted. Son No problems noted. Son No problems noted. Son No problems noted. Daughter No problems noted. Daughter No problems noted. Daughter No problems noted. Social History Household Members Other:: and grandson Housing: House Are you a primary foster care therapist to a significant other at home: Yes ( is homebound) Do you presently have visiting nurse or other home services: No Alcohol intake: former Patient Tobacco Use Status: Former Tobacco user Quit Date: as teenager Tobacco use type: Cigarette e-Cigarette/Vaping Use: Never Used service: No Current occupational status: employed Cognitive needs: No Hearing needs: No Vision needs: Yes Questionnaire PHQ-9 Over the last 2 weeks, how often have you been bothered by any of the following problems? 1. Little interest or pleasure in doing things: not at all 2. Feeling down, depressed, or hopeless: not at all 3. Trouble falling or staying asleep, or sleeping too much: several days 4. Feeling tired or having little energy: not at all 5. Poor appetite or overeating: not at all 6. Feeling bad about yourself - or that you are a failure or have let yourself or your family down: not at all 7. Trouble concentrating on things, such as reading the newspaper or watching television: not at all 8. Moving or speaking so slowly that other people could have noticed. Or the opposite - being so fidgety or restless that you have been moving around a lot more than usual: not at all 9. Thoughts that you would be better off or of hurting yourself in some way: not at all Total score: 1 Depression Screening Interpretation: Negative Depression Screening Done: Yes 88242 - PHQ-9 Billing: Yes Source: Developed by Drs. Willard Nathan, Baylee Yuen, Brock Hennessy and colleagues, with an educational floresita from [employer]. Thrive Questionnaire Date Thrive assessed: 11/19/23 I am a: Patient What is your living situation today?: I have a steady place to live Within the past 12 months, did the food you bought not last and you didn't have the money to get more?: Never true Within the past 12 months, did you worry whether your food would run out before you got money to buy more?: Never true Do you have trouble paying for medicines?: No Do you have trouble getting transportation to medical appointments?: No Do you have trouble paying your heating and electricity bill?: No Do you have trouble taking care of your child, family member or friend?: No Do you have trouble with day-to-day activities such as bathing, preparing meals, shopping, managing finances, etc.?: No Are you currently unemployed and looking for a job?: No Are you interested in more education?: No Please select the resources that you would like help with: None Currently or been in a relationship where the following occur: no concerns reported THRIVE Score: 0 AUDIT C Alcohol Use Questionnaire (AUDIT-C) 1. How often do you have a drink containing alcohol?: Monthly or less 2. How many drinks containing alcohol do you have on a typical day when you are drinking?: 1 or 2 3. How often do you have six or more drinks on one occasion?: Never Total Score: 1 Score Reviewed/Action Taken: Yes JERRY-7 AMB Questionnaire JERRY-7 Date JERRY - 7 assessed: 11/19/23 Feeling nervous, anxious, or on edge: 0 = Not at all Not being able to stop or control worryin = Not at all Worrying too much about different things: 0 = Not at all Trouble relaxin = Not at all Being so restless that it is hard to sit still: 0 = Not at all Becoming easily annoyed or irritable: 1 = Several days Feeling afraid as if something awful might happen: 0 = Not at all Total JERRY-7 score (0-4 normal; 5-9 mild; 10-14 moderate; 15-21 severe): 1 Source: Developed by Drs. Willard Nathan, Baylee Yuen, Brock Hennessy and colleagues, with an educational floresita from [employer]. JERRY-7 Assessment Billing JERRY-7 Assessment Tool: JERRY-7 Assessment 50945 Review of Systems Const Denies chills and Denies fever(s) ENT Denies epistaxis and Denies nasal discharge Card Denies chest pain Resp Denies chest congestion, Denies cough and Denies hemoptysis GI Denies diarrhea and Denies nausea Skin/Breast Denies rash Neuro Reports no additional complaints Psych Reports no additional complaints Endo Reports no additional complaints Physical exam (Primary Care) Vital Signs: Last Vital Signs Pulse 69 11/19/23 09:52 BP 128/76 11/19/23 09:52 Pulse Ox 96 11/19/23 09:52 Oxygen Delivery Method Room Air 11/19/23 09:52 BMI result Body Mass Index 36.6 Tobacco/Smoking Status: Tobacco use Status Tobacco use date assessed 11/19/23 11/19/23 09:58 Patient Tobacco Use Status Former Tobacco user 11/19/23 09:58 Tobacco use type Cigarette 11/19/23 09:58 e-Cigarette/Vaping Use Never Used 11/19/23 09:58 PHQ-9: PHQ-9 Score PHQ-9: Total score 1 11/19/23 10:30 Depression Screening Interpretation: Negative Thrive Assessment: Date of Thrive Assessment Date Thrive assessed 11/19/23 11/19/23 09:58 Currently or been in a relationship where the following occur: no concerns reported Const General: cooperative, comfortable and no acute distress Orientation/consciousness: patient oriented x3 HENMT Head: Yes normocephalic Eyes General: appearance normal, both eyes and all related structures Neck Neck: Yes supple Resp Effort & Inspection: normal respiratory effort, no cough and no stridor Cardio Rhythm: regular rhythm Heart sounds: S1 normal heart sound present and S2 normal heart sound present Skin General skin exam: turgor normal Neuro General: patient oriented x3, tone normal and moves all extremities Extrem Right lower extremity: no edema Left lower extremity: no edema Results AMB Hemoglobin A1c AMB Hemoglobin A1c 6.9 % Last Edit by Kimberly Spence MA on 11/19/23 10:23 Results Reviewed Results Reviewed: Laboratory Last Values Hgb A1c (Clinic) 6.9 % (4.0-6.0) H 11/19/23 10:23 Assessment and Plan Assessment & Plan (1) Hypertension, essential: Code(s): I10 - Essential (primary) hypertension (2) Lipid disorder: Code(s): E78.9 - Disorder of lipoprotein metabolism, unspecified (3) Hypothyroidism: Code(s): E03.9 - Hypothyroidism, unspecified Qualifiers: Hypothyroidism type: other Qualified Code(s): E03.8 - Other specified hypothyroidism (4) Diabetes 1.5, managed as type 2: Comment: dx~2013-does not check glucose @ home-diet controlled-previously on metformin but had adverse reaction Code(s): E13.9 - Other specified diabetes mellitus without complications (5) CAD (coronary artery disease): Comment: RCA drug-eluting stent. Mid LAD 80% disease, stable without anginal symptoms. Treated medically Code(s): I25.10 - Atherosclerotic heart disease of [place] coronary artery without angina pectoris Qualifiers: Associated angina: without angina Coronary Disease-Associated Artery/Lesion type: [place] artery [place] vs. transplanted heart: [place] heart Qualified Code(s): I25.10 - Atherosclerotic heart disease of [place] coronary artery without angina pectoris (6) Hypertensive nephropathy: Code(s): I12.9 - Hypertensive chronic kidney disease with stage 1 through stage 4 chronic kidney disease, or unspecified chronic kidney disease (7) LFT elevation: Code(s): R79.89 - Other specified abnormal findings of blood chemistry Plan Patient is 77-year-old female Patient is taking care of her who is almost wheelchair bound She comes in every 6 months with her for follow-up Patient tells me that she has developed an urge incontinence however she is dealing with the problem just fine And do not want to take any medications Patient has been stable taking all her medications offer no new complaints She has not seen Cardiology in a while, all her cardiac medications are from PCP office Patient does not want to see Cardiology anymore She has coronary artery disease without angina Her blood pressure is stable , metoprolol 200 mg, and losartan 100 mg She is tolerating medications no side effects Patient is diet-controlled diabetic , hemoglobin A1c has been stable, it is 6.9 today Patient says that she drinks everett tyson regular and she does not want to stop Hypothyroidism: TSH is stable with Synthroid 88 mcg. BMI is elevated having difficulty losing weight Patient will have labs done today She will return in 6 month for follow-up with her Orders: Orders Microalbumin, Random (w Creat) Today E13.9 - Other specified diabetes mellitus without complications Complete Blood Count Auto Diff Today E03.8 - Other specified hypothyroidism, E13.9 - Other specified diabetes mellitus without complications, E78.9 - Disorder of lipoprotein metabolism, unspecified, I10 - Essential (primary) hypertension, I12.9 - Hypertensive chronic kidney disease with stage 1 through stage 4 chronic kidney disease, or unspecified chronic kidney disease, I25.10 - Atherosclerotic heart disease of [place] coronary artery without angina pectoris, R79.89 - Other specified abnormal findings of blood chemistry Comprehensive Met. Panel Today E03.8 - Other specified hypothyroidism, E13.9 - Other specified diabetes mellitus without complications, E78.9 - Disorder of lipoprotein metabolism, unspecified, I10 - Essential (primary) hypertension, I12.9 - Hypertensive chronic kidney disease with stage 1 through stage 4 chronic kidney disease, or unspecified chronic kidney disease, I25.10 - Atherosclerotic heart disease of [place] coronary artery without angina pectoris, R79.89 - Other specified abnormal findings of blood chemistry TSH reflex Free T4 Today E03.8 - Other specified hypothyroidism, E13.9 - Other specified diabetes mellitus without complications, E78.9 - Disorder of lipoprotein metabolism, unspecified, I10 - Essential (primary) hypertension, I12.9 - Hypertensive chronic kidney disease with stage 1 through stage 4 chronic kidney disease, or unspecified chronic kidney disease, I25.10 - Atherosclerotic heart disease of [place] coronary artery without angina pectoris, R79.89 - Other specified abnormal findings of blood chemistry Medications: Refilled Synthroid (levothyroxine) No substitution 88 mcg PO DAILY 90 tabs 3RF 90 days NS losartan 100 mg PO DAILY 90 tabs 1RF Coding Level of Care Code Est Pt Level 4 (87481) Diagnoses Hypertension, essential I10 Lipid disorder E78.9 Other specified hypothyroidism E03.8 Hypothyroidism type: other Diabetes 1.5, managed as type 2 E13.9 Coronary artery disease involving [place] coronary artery of [place] heart without angina pectoris I25.10 Associated angina: without angina Coronary Disease-Associated Artery/Lesion type: [place] artery [place] vs. transplanted heart: [place] heart Hypertensive nephropathy I12.9 LFT elevation R79.89 Additional Codes JERRY-7 Assessment Billing - JERRY-7 Assessment Tool: JERRY-7 Assessment [id number] ([id number])
== END 2023-11-19 11:26 | disposition home or self-care (01) ==
PROVIDERS: PCP Internal Medicine; Visit Provider Internal Medicine
DX: I10 Essential (primary) hypertension (principal); E13.9 Other specified diabetes mellitus without complications; E78.9 Disorder of lipoprotein metabolism, unspecified; E03.8 Other specified hypothyroidism; I25.10 Atherosclerotic heart disease of native coronary artery without angina pectoris; R79.89 Other specified abnormal findings of blood chemistry
CPT/HCPCS: 83036; 99214

== ENCOUNTER 2023-11-19 10:27 | Outpatient (REF) | payer MEDICARE, SELFPAY ==
[2023-11-19 13:13] LABS: MANUAL DIFF FLAG NO
[2023-11-19 13:23] LABS: Basophils Percent Auto 0.5 % (0-2); Eosinophils Absolute Auto 0.2 X10*3/uL (0.0-0.4); Eosinophils Percent Auto 2.9 % (0-4); Hematocrit 46.7 % (37.0-47.0); Hemoglobin 15.1 g/dl (12.0-16.0); Imm Gran Abs Auto 0.02 X10*3/uL (0.00-0.03); Imm Gran Pct Auto 0.3 % (0.0-0.4); Lymphocytes Absolute Auto 1.4 X10*3/uL (1.2-4.9); Lymphocytes Percent Auto 21.9 % (20-40); Mean Corpuscular HGB Conc 32.3 g/dl (31.0-35.0); Mean Corpuscular Hemoglobin 30.1 pg (27.0-33.0); Monocytes Absolute Auto 0.5 X10*3/uL (0.1-1.2); Monocytes Percent Auto 7.8 % (2-11); Neutrophils Absolute Auto 4.4 x10*3/uL (2.0-8.3); Neutrophils Percent Auto 66.6 % (45-73); Platelet Count 256 X10*3/uL (160-400); Red Blood Count 5.02 X10*6/uL (4.20-5.50); Red Cell Distribution Width 13.6 % (11.0-16.0); White Blood Count 6.5 X10*3/uL (4.8-10.8)
[2023-11-19 14:16] LABS: Creatinine Urine 132.12 mg/dL; Microalbum/Creatinine Ratio Ur 20.4 ug/mg cr (<30)
[2023-11-19 20:19] LABS: Alanine Aminotransferase 57 U/L (0-31); Albumin Level 4.2 g/dL (3.5-5.0); Alkaline Phosphatase 95 U/L (39-117); Anion Gap 17 (12-20); Aspartate Amino Transferase 49 U/L (5-31); Bilirubin Total 0.5 mg/dL (0.0-1.0); Blood Urea Nitrogen 19 mg/dL (9-16); Calcium 9.4 mg/dL (8.4-10.2); Carbon Dioxide 22 mmol/L (22-29); Chloride 103 mmol/L (96-108); Estimated Glomerular Filt Rate 45; Glucose Random 137 mg/dL (60-115); Sodium 137 mmol/L (135-145); Total Protein 7.7 g/dL (6.5-8.0)
[2023-11-19 20:34] LABS: TSH reflex Free T4 2.72 uIU/mL (0.32-4.0)
== END 2023-11-19 10:28 | disposition home or self-care (01) ==
LOC: HO.HMGCLDS 10:27
PROVIDERS: PCP Internal Medicine; Visit Provider Internal Medicine
DX: I10 Essential (primary) hypertension (principal); E78.9 Disorder of lipoprotein metabolism, unspecified; E03.8 Other specified hypothyroidism; E13.9 Other specified diabetes mellitus without complications; I25.10 Atherosclerotic heart disease of native coronary artery without angina pectoris; I12.9 Hypertensive chronic kidney disease with stage 1 through stage 4 chronic kidney disease, or unspecified chronic kidney disease; R79.89 Other specified abnormal findings of blood chemistry
CPT/HCPCS: 36415; 80053; 82043; 82570; 84443; 85025

== ENCOUNTER 2024-05-26 14:12 | Outpatient (REF) | payer MEDICARE, SELFPAY ==
[2024-05-26 18:21] LABS: Alanine Aminotransferase 50 U/L (0-31); Alkaline Phosphatase 99 U/L (39-117); Anion Gap 10 (12-20); Aspartate Amino Transferase 49 U/L (5-31); Bilirubin Total 0.4 mg/dL (0.0-1.0); Blood Urea Nitrogen 16 mg/dL (9-16); Calcium 8.6 mg/dL (8.4-10.2); Carbon Dioxide 26 mmol/L (22-29); Chloride 105 mmol/L (96-108); Estimated Glomerular Filt Rate 42; Glucose Random 170 mg/dL (60-115); Potassium 4.3 mmol/L (3.3-5.1); Sodium 137 mmol/L (135-145); Total Protein 7.5 g/dL (6.5-8.0)
== END 2024-05-26 14:13 | disposition home or self-care (01) ==
LOC: HO.HMGCLDS 14:12
PROVIDERS: PCP Internal Medicine; Visit Provider Internal Medicine
DX: I10 Essential (primary) hypertension (principal); E78.9 Disorder of lipoprotein metabolism, unspecified; E03.8 Other specified hypothyroidism
CPT/HCPCS: 36415; 80053; 84443; 96127; 99212

== ENCOUNTER 2024-05-26 14:12 | Outpatient (AMB) | payer MEDICARE, SELFPAY ==
[2024-05-26 14:14] VITALS: BP 128/78; PULSE 68; O2SAT 96; BMI 36.0
--- NOTE | 2024-05-26 14:14 | A.OFFPC_ITS ---
Vital Signs 05/26/24 14:14 Height 5 ft 3 in Weight 203 lb BMI 36.0 BP 128/78 Blood Pressure Location Lt brachial Position Sitting Pulse 68 Pulse Source Pulse Oximeter Pulse Oximetry (%) 96 Intake Visit Reasons: 6 month follow up Intake Note: pt is here for 6 month follow up [employer] Required: No Accompanied by: Self / Same As Patient Allergies metformin Adverse Reaction (Intermediate, Verified 05/26/24 14:14) Diarrhea Medication List - Last Reconciled 05/26/24 by Tyler Jones MD aspirin (Adult Low Dose Aspirin) 162 mg PO DAILY losartan 100 mg PO DAILY metoprolol succinate ER 200 mg PO DAILY Synthroid (levothyroxine) 88 mcg PO DAILY 90 days NS Tobacco use date assessed: 11/19/23 Fall risk assessment: No Falls in past year Last assessed Fall Risk: 05/26/24 Dental Screening Dental Screen Date: 11/19/23 HPI 6 month follow up HPI Details Patient is a 78-year-old female came in for regular follow-up appoin tment She is doing offer no complaints Pressure is stable Patient is taking all her medication no side effects She is taking care of has gait problem and is not able to take even a single step She is providing full care for him including personal hygiene BMI is elevated patient is having difficulty losing weight She is due for labs which needs to be done today Follow-up 4 months [facility] Medical History Abnormal ECG Myocardial infarction Renal calculi CAD (coronary artery disease) Diabetes 1.5, managed as type 2 Hypothyroidism Lipid disorder Hypertension, essential Surgical History Hx laparoscopic cholecystectomy (03/05/22) Stented coronary artery History of knee replacement History of colonoscopy History of cataract surgery Family History Father HTN (hypertension) Myocardial infarction Mother No problems noted. Brother No problems noted. Sister No problems noted. Son No problems noted. Son No problems noted. Son No problems noted. Son No problems noted. Daughter No problems noted. Daughter No problems noted. Daughter No problems noted. Social History Household Members Other:: and grandson Housing: House Are you a primary point of care specialist to a significant other at home: Yes ( is homebound) Do you presently have visiting nurse or other home services: No Alcohol intake: former Patient Tobacco Use Status: Former Tobacco user Tobacco use type: Cigarette e-Cigarette/Vaping Use: Never Used service: No Current occupational status: employed Cognitive needs: No Hearing needs: No Vision needs: Yes Questionnaire PHQ-9 Over the last 2 weeks, how often have you been bothered by any of the following problems? 1. Little interest or pleasure in doing things: not at all 2. Feeling down, depressed, or hopeless: not at all 3. Trouble falling or staying asleep, or sleeping too much: not at all 4. Feeling tired or having little energy: not at all 5. Poor appetite or overeating: not at all 6. Feeling bad about yourself - or that you are a failure or have let yourself or your family down: not at all 7. Trouble concentrating on things, such as reading the newspaper or watching television: not at all 8. Moving or speaking so slowly that other people could have noticed. Or the opposite - being so fidgety or restless that you have been moving around a lot more than usual: not at all 9. Thoughts that you would be better off or of hurting yourself in some way: not at all Total score: 0 Depression Screening Interpretation: Negative Depression Screening Done: Yes 21714 - PHQ-9 Billing: Yes Source: Developed by Drs. Willard Nathan, Baylee Yuen, Brock Hennessy and colleagues, with an educational floresita from [employer]. Thrive Questionnaire Date Thrive assessed: 05/26/24 I am a: Patient What is your living situation today?: I have a steady place to live Within the past 12 months, did the food you bought not last and you didn't have the money to get more?: Never true Within the past 12 months, did you worry whether your food would run out before you got money to buy more?: Never true Do you have trouble paying for medicines?: No Do you have trouble getting transportation to medical appointments?: No Do you have trouble paying your heating and electricity bill?: No Do you have trouble taking care of your child, family member or friend?: No Do you have trouble with day-to-day activities such as bathing, preparing meals, shopping, managing finances, etc.?: No Are you currently unemployed and looking for a job?: No Are you interested in more education?: No Please select the resources that you would like help with: None Currently or been in a relationship where the following occur: No concerns reported THRIVE Score: 0 AUDIT C Alcohol Use Questionnaire (AUDIT-C) 1. How often do you have a drink containing alcohol?: Never 3. How often do you have six or more drinks on one occasion?: Never Total Score: 0 Score Reviewed/Action Taken: Yes JERRY-7 AMB Questionnaire JERRY-7 Date JERRY - 7 assessed: 05/26/24 Feeling nervous, anxious, or on edge: 0 = Not at all Not being able to stop or control worryin = Not at all Worrying too much about different things: 0 = Not at all Trouble relaxin = Not at all Being so restless that it is hard to sit still: 0 = Not at all Becoming easily annoyed or irritable: 0 = Not at all Feeling afraid as if something awful might happen: 0 = Not at all Total JERRY-7 score (0-4 normal; 5-9 mild; 10-14 moderate; 15-21 severe): 0 Source: Developed by Drs. Willard Nathan, Baylee Yuen, Brock Hennessy and colleagues, with an educational floresita from [employer]. JERRY-7 Assessment Billing JERRY-7 Assessment Tool: JERRY-7 Assessment 32348 Review of Systems Const Denies chills and Denies fever(s) ENT Denies epistaxis and Denies nasal discharge Card Denies chest pain Resp Denies chest congestion, Denies cough and Denies hemoptysis GI Denies diarrhea and Denies nausea Skin/Breast Denies rash Neuro Reports no additional complaints Psych Reports no additional complaints Endo Reports no additional complaints Physical exam (Primary Care) Vital Signs: Last Vital Signs Pulse 68 05/26/24 14:14 BP 128/78 05/26/24 14:14 Pulse Ox 96 05/26/24 14:14 BMI result Body Mass Index 36.0 Tobacco/Smoking Status: Tobacco use Status Tobacco use date assessed 11/19/23 05/26/24 14:15 Patient Tobacco Use Status Former Tobacco user 05/26/24 14:15 Tobacco use type Cigarette 05/26/24 14:15 e-Cigarette/Vaping Use Never Used 05/26/24 14:15 PHQ-9: PHQ-9 Score PHQ-9: Total score 0 05/26/24 14:25 Depression Screening Interpretation: Negative Thrive Assessment: Date of Thrive Assessment Date Thrive assessed 05/26/24 05/26/24 14:15 Currently or been in a relationship where the following occur: No concerns reported Const General: cooperative, comfortable and no acute distress Orientation/consciousness: patient oriented x3 HENMT Head: Yes normocephalic Eyes General: appearance normal, both eyes and all related structures Neck Neck: Yes supple Resp Effort & Inspection: normal respiratory effort, no cough and no stridor Cardio Rhythm: regular rhythm Heart sounds: S1 normal heart sound present and S2 normal heart sound present Skin General skin exam: turgor normal Neuro General: patient oriented x3, tone normal and moves all extremities Extrem Right lower extremity: no edema Left lower extremity: no edema Coding Level of Care Code Est Pt Level 3 (21852) Complex EM visit Add On G2211 Diagnoses Hypertension, essential I10 Lipid disorder E78.9 Other specified hypothyroidism E03.8 Hypothyroidism type: other Additional Codes JERRY-7 Assessment Billing - JERRY-7 Assessment Tool: JERRY-7 Assessment 26974 ([id number]) PHQ-9 - 37081 - PHQ-9 Billing: Yes ([id number]) Assessment & Plan Assessment & Plan (1) Hypertension, essential: Code(s): I10 - Essential (primary) hypertension Category: Medical (2) Lipid disorder: Code(s): E78.9 - Disorder of lipoprotein metabolism, unspecified Category: Medical (3) Hypothyroidism: Code(s): E03.9 - Hypothyroidism, unspecified Category: Medical Qualifiers: Hypothyroidism type: other Qualified Code(s): E03.8 - Other specified hypothyroidism Plan Patient is a 78-year-old female came in for regular follow-up appointment She is doing offer no complaints Pressure is stable Patient is taking all her medication no side effects She is taking care of has gait problem and is not able to take even a single step She is providing full care for him including personal hygiene BMI is elevated patient is having difficulty losing weight She is due for labs which needs to be done today Follow-up 4 months Orders: Orders Comprehensive Met. Panel Today E03.8 - Other specified hypothyroidism, E78.9 - Disorder of lipoprotein metabolism, unspecified, I10 - Essential (primary) hypertension TSH reflex Free T4 Today E03.8 - Other specified hypothyroidism, E78.9 - Disorder of lipoprotein metabolism, unspecified, I10 - Essential (primary) hypertension
== END 2024-05-26 14:47 | disposition home or self-care (01) ==
PROVIDERS: PCP Internal Medicine; Visit Provider Internal Medicine
DX: I10 Essential (primary) hypertension (principal); E78.9 Disorder of lipoprotein metabolism, unspecified; E03.8 Other specified hypothyroidism

== ENCOUNTER 2024-09-24 08:05 | Outpatient (AMB) | payer MEDICARE, SELFPAY ==
--- NOTE | 2024-09-24 08:24 | MHC.PC.OV ---
Intake Visit Reasons: 4m t/v follow up Allergies metformin Adverse Reaction (Intermediate, Verified 09/24/24 08:24) Diarrhea Medication List - Last Reconciled 09/24/24 by Tyler Jones MD aspirin (Adult Low Dose Aspirin) 162 mg PO DAILY losartan 100 mg PO DAILY metoprolol succinate ER 200 mg PO DAILY Synthroid (levothyroxine) 88 mcg PO DAILY 90 days NS Tobacco use date assessed: 09/24/24 Fall risk assessment: No Falls in past year Last assessed Fall Risk: 09/24/24 Dental Screening Dental Screen Date: 09/24/24 Did you have a dental visit in the last 12 months?: No Did you have a dental problem in the last 6 months where you did not have access to dental care?: No Was dental information given to patient?: Patient declined HPI 4m t/v follow up HPI Details History The patient is a 78-year-old female presenting for regular f.u. - Recently, the patient had a dental procedure to address an obstruction caused by a tooth condition, which was resolved using antibiotics. The issue has since been resolved without complications. - The patient does not monitor her blood pressure at home but has not experienced related symptoms. She is on antihypertensive medication without reported side effects. - The patient continues medication management for diabetes, hypertension, and hypothyroidism, reporting no adverse effects from losartan, metoprolol, or Synthroid. - The patient's previous laboratory work was conducted in May; new fasting labs have been scheduled. Problem List - Type 2 Diabetes Mellitus - Hypertension - Hypothyroidism Patient Instructions - Undergo laboratory testing, ensuring it is done fasting. Do not eat for 10 hours prior and until after blood work is completed. - Confirm all current prescriptions are adequate, and request refills from the care group if needed. - Continue monitoring blood glucose and follow diabetic dietary and lifestyle recommendations. Review of Systems - Neurological: No headaches no dizziness - Ear nose throat: No sore throat no hearing difficulty no ear pain - Cardiovascular: No syncope, no chest pain, no palpitations - Gastrointestinal: No nausea vomiting or diarrhea - Endocrine: No polyuria polydipsia no heat intolerance - Genitourinary: No dysuria , no blood in urine [facility] Medical History Abnormal ECG Myocardial infarction Renal calculi CAD (coronary artery disease) Diabetes 1.5, managed as type 2 Hypothyroidism Lipid disorder Hypertension, essential Surgical History Hx laparoscopic cholecystectomy (03/05/22) Stented coronary artery History of knee replacement History of colonoscopy History of cataract surgery Family History Father HTN (hypertension) Myocardial infarction Mother No problems noted. Brother No problems noted. Sister No problems noted. Son No problems noted. Son No problems noted. Son No problems noted. Son No problems noted. Daughter No problems noted. Daughter No problems noted. Daughter No problems noted. Social History Household Members Other:: and grandson Housing: House Are you a primary care services manager to a significant other at home: Yes ( is homebound) Do you presently have visiting nurse or other home services: No Alcohol intake: former Patient Tobacco Use Status: Former Tobacco user Tobacco use type: Cigarette e-Cigarette/Vaping Use: Never Used service: No Current occupational status: employed Cognitive needs: No Hearing needs: No Vision needs: Yes Questionnaire PHQ-9 Over the last 2 weeks, how often have you been bothered by any of the following problems? 04190 - PHQ-9 Billing: Patient declined-do not bill Source: Developed by Drs. Willard Nathan, Baylee Yuen, Brock Hennessy and colleagues, with an educational floresita from [employer]. Thrive Questionnaire Date Thrive assessed: 09/24/24 I am a: Patient What is your living situation today?: I have a steady place to live Within the past 12 months, did the food you bought not last and you didn't have the money to get more?: Never true Within the past 12 months, did you worry whether your food would run out before you got money to buy more?: Never true Do you have trouble paying for medicines?: No Do you have trouble getting transportation to medical appointments?: No Do you have trouble paying your heating and electricity bill?: No Do you have trouble taking care of your child, family member or friend?: No Do you have trouble with day-to-day activities such as bathing, preparing meals, shopping, managing finances, etc.?: No Are you currently unemployed and looking for a job?: No Are you interested in more education?: No Please select the resources that you would like help with: None Currently or been in a relationship where the following occur: No concerns reported THRIVE Score: 0 AUDIT C Alcohol Use Questionnaire (AUDIT-C) 1. How often do you have a drink containing alcohol?: Never 3. How often do you have six or more drinks on one occasion?: Never Total Score: 0 Score Reviewed/Action Taken: Yes JERRY-7 AMB Questionnaire JERRY-7 Date JERRY - 7 assessed: 09/24/24 Feeling nervous, anxious, or on edge: 0 = Not at all Not being able to stop or control worryin = Not at all Worrying too much about different things: 0 = Not at all Trouble relaxin = Not at all Being so restless that it is hard to sit still: 0 = Not at all Becoming easily annoyed or irritable: 0 = Not at all Feeling afraid as if something awful might happen: 0 = Not at all Total JERRY-7 score (0-4 normal; 5-9 mild; 10-14 moderate; 15-21 severe): 0 Source: Developed by Drs. Willard Nathan, Baylee Yuen, Brock Hennessy and colleagues, with an educational floresita from [employer]. JERRY-7 Assessment Billing JERRY-7 Assessment Tool: JERRY-7 Assessment 44420 Physical exam (Primary Care) Tobacco/Smoking Status: Tobacco use Status Tobacco use date assessed 09/24/24 09/24/24 08:25 Patient Tobacco Use Status Former Tobacco user 09/24/24 08:25 Tobacco use type Cigarette 09/24/24 08:25 e-Cigarette/Vaping Use Never Used 09/24/24 08:25 Thrive Assessment: Date of Thrive Assessment Date Thrive assessed 09/24/24 09/24/24 08:25 Currently or been in a relationship where the following occur: No concerns reported Telehealth Telehealth Telehealth Platform: [facility] Location of provider rendering services: practice address Location of patient: address on file Patient Identification confirmed using: Name, : Yes Telehealth method: voice only Patient verbally consented to treatment: Yes Patient verbally consented to billing insurance company: Yes Patient informed of any privacy concerns related to visit: Yes Minutes spent on Phone/Video with Pt.: 13 Coding Level of Care Code Est Pt Level 3 (50000) Complex EM visit Add On G2211 Diagnoses Hypertension, essential I10 Lipid disorder E78.9 Other specified hypothyroidism E03.8 Hypothyroidism type: other Diabetes 1.5, managed as type 2 E13.9 LFT elevation R79.89 Additional Codes JERRY-7 Assessment Billing - JERRY-7 Assessment Tool: JERRY-7 Assessment 09816 ([id number]) Assessment & Plan Assessment & Plan (1) Hypertension, essential: Code(s): I10 - Essential (primary) hypertension Category: Medical (2) Lipid disorder: Code(s): E78.9 - Disorder of lipoprotein metabolism, unspecified Category: Medical (3) Hypothyroidism: Code(s): E03.9 - Hypothyroidism, unspecified Category: Medical Qualifiers: Hypothyroidism type: other Qualified Code(s): E03.8 - Other specified hypothyroidism (4) Diabetes 1.5, managed as type 2: Comment: dx~2013-does not check glucose @ home-diet controlled-previously on metformin but had adverse reaction Code(s): E13.9 - Other specified diabetes mellitus without complications Category: Medical (5) LFT elevation: Code(s): R79.89 - Other specified abnormal findings of blood chemistry Category: Medical Plan History The patient is a 78-year-old female presenting for regular f.u. - Recently, the patient had a dental procedure to address an obstruction caused by a tooth condition, which was resolved using antibiotics. The issue has since been resolved without complications. - The patient does not monitor her blood pressure at home but has not experienced related symptoms. She is on antihypertensive medication without reported side effects. - The patient continues medication management for diabetes, hypertension, and hypothyroidism, reporting no adverse effects from losartan, metoprolol, or Synthroid. - The patient's previous laboratory work was conducted in May; new fasting labs have been scheduled. Problem List - Type 2 Diabetes Mellitus - Hypertension - Hypothyroidism Patient Instructions - Undergo laboratory testing, ensuring it is done fasting. Do not eat for 10 hours prior and until after blood work is completed. - Confirm all current prescriptions are adequate, and request refills from the care group if needed. - Continue monitoring blood glucose and follow diabetic dietary and lifestyle recommendations. Review of Systems - Neurological: No headaches no dizziness - Ear nose throat: No sore throat no hearing difficulty no ear pain - Cardiovascular: No syncope, no chest pain, no palpitations - Gastrointestinal: No nausea vomiting or diarrhea - Endocrine: No polyuria polydipsia no heat intolerance - Genitourinary: No dysuria , no blood in urine Orders: Orders Complete Blood Count Auto Diff Today E03.8 - Other specified hypothyroidism, E13.9 - Other specified diabetes mellitus without complications, E78.9 - Disorder of lipoprotein metabolism, unspecified, I10 - Essential (primary) hypertension, R79.89 - Other specified abnormal findings of blood chemistry Comprehensive [place]. Panel Fast Today E03.8 - Other specified hypothyroidism, E13.9 - Other specified diabetes mellitus without complications, E78.9 - Disorder of lipoprotein metabolism, unspecified, I10 - Essential (primary) hypertension, R79.89 - Other specified abnormal findings of blood chemistry Vitamin D 25-OH (D2 and D3) Today E03.8 - Other specified hypothyroidism, E13.9 - Other specified diabetes mellitus without complications, E78.9 - Disorder of lipoprotein metabolism, unspecified, I10 - Essential (primary) hypertension, R79.89 - Other specified abnormal findings of blood chemistry Vitamin B12 Today E03.8 - Other specified hypothyroidism, E13.9 - Other specified diabetes mellitus without complications, E78.9 - Disorder of lipoprotein metabolism, unspecified, I10 - Essential (primary) hypertension, R79.89 - Other specified abnormal findings of blood chemistry Microalbumin, Random (w Creat) Today E03.8 - Other specified hypothyroidism, E13.9 - Other specified diabetes mellitus without complications, E78.9 - Disorder of lipoprotein metabolism, unspecified, I10 - Essential (primary) hypertension, R79.89 - Other specified abnormal findings of blood chemistry Hemoglobin A1c Today E03.8 - Other specified hypothyroidism, E13.9 - Other specified diabetes mellitus without complications, E78.9 - Disorder of lipoprotein metabolism, unspecified, I10 - Essential (primary) hypertension, R79.89 - Other specified abnormal findings of blood chemistry Lipid Panel Today E03.8 - Other specified hypothyroidism, E13.9 - Other specified diabetes mellitus without complications, E78.9 - Disorder of lipoprotein metabolism, unspecified, I10 - Essential (primary) hypertension, R79.89 - Other specified abnormal findings of blood chemistry TSH reflex Free T4 Today E03.8 - Other specified hypothyroidism, E13.9 - Other specified diabetes mellitus without complications, E78.9 - Disorder of lipoprotein metabolism, unspecified, I10 - Essential (primary) hypertension, R79.89 - Other specified abnormal findings of blood chemistry
== END 2024-09-24 09:25 | disposition home or self-care (01) ==
LOC: HO.HMCC 08:05
PROVIDERS: PCP Internal Medicine; Visit Provider Internal Medicine
DX: I10 Essential (primary) hypertension (principal); E78.9 Disorder of lipoprotein metabolism, unspecified; E03.8 Other specified hypothyroidism; E13.9 Other specified diabetes mellitus without complications; R79.89 Other specified abnormal findings of blood chemistry

== ENCOUNTER → 2024-09-24 08:05 | Outpatient (BNVA) | payer MEDICARE, SELFPAY | PROVIDERS: PCP Internal Medicine; Visit Provider Internal Medicine | DX: I10 Essential (primary) hypertension (principal); E78.9 Disorder of lipoprotein metabolism, unspecified; E03.8 Other specified hypothyroidism; E13.9 Other specified diabetes mellitus without complications; E79.89 Other specified disorders of purine and pyrimidine metabolism | CPT/HCPCS: 96127; 99212 ==

== ENCOUNTER 2024-09-25 08:45 | Outpatient (REF) | payer MEDICARE, SELFPAY ==
[2024-09-25 10:08] LABS: MANUAL DIFF FLAG NO
[2024-09-25 10:19] LABS: Basophils Absolute Auto 0.1 X10*3/uL (0.0-0.2); Basophils Percent Auto 0.9 % (0-2); Eosinophils Absolute Auto 0.3 X10*3/uL (0.0-0.4); Eosinophils Percent Auto 4.4 % (0-4); Hematocrit 45.2 % (37.0-47.0); Hemoglobin 14.9 g/dl (12.0-16.0); Imm Gran Abs Auto 0.01 X10*3/uL (0.00-0.03); Imm Gran Pct Auto 0.2 % (0.0-0.4); Lymphocytes Absolute Auto 1.7 X10*3/uL (1.2-4.9); Lymphocytes Percent Auto 29.7 % (20-40); Mean Corpuscular Hemoglobin 30.4 pg (27.0-33.0); Mean Corpuscular Volume 92.2 fL (80.0-98.0); Monocytes Absolute Auto 0.5 X10*3/uL (0.1-1.2); Monocytes Percent Auto 8.8 % (2-11); Neutrophils Absolute Auto 3.2 x10*3/uL (2.0-8.3); Platelet Count 235 X10*3/uL (160-400); Red Cell Distribution Width 13.7 % (11.0-16.0); White Blood Count 5.7 X10*3/uL (4.8-10.8)
[2024-09-25 10:38] LABS: Estimated Average Glucose 140 mg/dL; Hemoglobin A1C 184.4177 umol/L; Hemoglobin A1c % 6.5 % (<6.0); Total Hemoglobin (HGBA1C) 3861.1183 umol/L
[2024-09-25 10:58] LABS: Alanine Aminotransferase 38 U/L (0-31); Anion Gap 11 (12-20); Aspartate Amino Transferase 39 U/L (5-31); Bilirubin Total 0.7 mg/dL (0.0-1.0); Blood Urea Nitrogen 19 mg/dL (9-16); Calcium 8.7 mg/dL (8.4-10.2); Carbon Dioxide 24 mmol/L (22-29); Chloride 107 mmol/L (96-108); Cholesterol 265 mg/dL (<200); Estimated Glomerular Filt Rate 42; Glucose Fasting 117 mg/dL (60-99); HDL Cholesterol 47 mg/dL (>40); LDL Cholesterol Calculated 180 mg/dL (<100); Potassium 4.5 mmol/L (3.3-5.1); Sodium 137 mmol/L (135-145); TSH reflex Free T4 2.89 uIU/mL (0.32-4.0); Total Protein 7.8 g/dL (6.5-8.0); Triglycerides 191 mg/dL (<150)
[2024-09-25 11:17] LABS: Creatinine Urine 190.05 mg/dL; Microalbum/Creatinine Ratio Ur 13.1 ug/mg cr (<30)
[2024-09-25 11:19] LABS: Vitamin B12 318 pg/mL (200-900)
[2024-09-25 11:23] LABS: Alkaline Phosphatase 95 U/L (39-117)
== END 2024-09-25 08:46 | disposition home or self-care (01) ==
LOC: HO.HMGCLDS 08:45
PROVIDERS: Internal Medicine; PCP Internal Medicine; Visit Provider Internal Medicine
DX: E13.9 Other specified diabetes mellitus without complications (principal); I10 Essential (primary) hypertension; E03.8 Other specified hypothyroidism; R79.89 Other specified abnormal findings of blood chemistry; E78.9 Disorder of lipoprotein metabolism, unspecified
CPT/HCPCS: 36415; 80053; 80061; 82043; 82306; 82570; 82607; 83036; 84443; 85025

== ENCOUNTER 2024-10-01 08:15 | Outpatient (AMB) | payer MEDICARE, SELFPAY ==
--- NOTE | 2024-10-01 08:33 | MHC.PC.OV ---
Intake Visit Reasons: Follow up Labs Allergies metformin Adverse Reaction (Intermediate, Verified 10/01/24 08:35) Diarrhea Medication List - Last Reconciled 10/01/24 by Tyler Jones MD aspirin (Adult Low Dose Aspirin) 162 mg PO DAILY cholecalciferol (vitamin D3) 25 mcg PO DAILY 90 days losartan 100 mg PO DAILY metoprolol succinate ER 200 mg PO DAILY Synthroid (levothyroxine) 88 mcg PO DAILY 90 days NS Tobacco use date assessed: 09/24/24 Fall risk assessment: No Falls in past year Last assessed Fall Risk: 10/01/24 Dental Screening Dental Screen Date: 09/24/24 HPI Follow up Labs HPI Details History - The patient is a 78-year-old female presenting for follow-up care related to multiple chronic conditions. - She has Type 2 Diabetes Mellitus, managed with dietary control, with current hemoglobin A1c at 6.5, showing improvement over the previous year. - Chronic Kidney Disease is noted, with current lab results confirming stable yet slightly compromised renal function. - Dyslipidemia is present, with no current management due to previous adverse effects from medication; LDL cholesterol remains elevated. - Hypertension is managed with Losartan and Metoprolol, with a current blood pressure reading pending. - Vitamin D deficiency identified recently, supplementation initiated. - Liver enzymes are slightly elevated but stable and showing improvement from past evaluations. Problem List - Type 2 Diabetes Mellitus - Chronic Kidney Disease with stable function - Dyslipidemia - Hypertension - Vitamin D Deficiency - Elevated Liver Enzymes Patient Instructions - Continue taking prescribed vitamin D supplements as indicated by the pharmacy. - Monitor blood pressure regularly once a cuff is available. - Follow diet recommendations to manage blood sugar and cholesterol: prioritize fruits and vegetables, lean meats, and limit intake of white flour, sugar, and fatty foods. - Plan to revisit for lab work in four months. - Contact office if significant concerns arise before the next scheduled visit. - patient declined medication for high lipids, she has tried atrovastatin which caused dirrhea Review of Systems - General: No fever no chills - Neurological: No headaches no dizziness - Ear nose throat: No sore throat no hearing difficulty no ear pain - Cardiovascular: No syncope, no chest pain, no palpitations - Gastrointestinal: No nausea vomiting or diarrhea - Endocrine: No polyuria polydipsia no heat intolerance - Genitourinary: No dysuria , no blood in urine [facility] Medical History Abnormal ECG Myocardial infarction Renal calculi CAD (coronary artery disease) Diabetes 1.5, managed as type 2 Hypothyroidism Lipid disorder Hypertension, essential Surgical History Hx laparoscopic cholecystectomy (03/05/22) Stented coronary artery History of knee replacement History of colonoscopy History of cataract surgery Family History Father HTN (hypertension) Myocardial infarction Mother No problems noted. Brother No problems noted. Sister No problems noted. Son No problems noted. Son No problems noted. Son No problems noted. Son No problems noted. Daughter No problems noted. Daughter No problems noted. Daughter No problems noted. Social History Household Members Other:: and grandson Housing: House Are you a primary foster care social worker to a significant other at home: Yes ( is homebound) Do you presently have visiting nurse or other home services: No Alcohol intake: former Patient Tobacco Use Status: Former Tobacco user Tobacco use type: Cigarette e-Cigarette/Vaping Use: Never Used service: No Current occupational status: employed Cognitive needs: No Hearing needs: No Vision needs: Yes Questionnaire Thrive Questionnaire Date Thrive assessed: 05/26/24 I am a: Patient What is your living situation today?: I have a steady place to live Within the past 12 months, did the food you bought not last and you didn't have the money to get more?: Never true Within the past 12 months, did you worry whether your food would run out before you got money to buy more?: Never true Do you have trouble paying for medicines?: No Do you have trouble getting transportation to medical appointments?: No Do you have trouble paying your heating and electricity bill?: No Do you have trouble taking care of your child, family member or friend?: No Do you have trouble with day-to-day activities such as bathing, preparing meals, shopping, managing finances, etc.?: No Are you currently unemployed and looking for a job?: No Are you interested in more education?: No Please select the resources that you would like help with: None Currently or been in a relationship where the following occur: No concerns reported THRIVE Score: 0 JERRY-7 AMB Questionnaire JERRY-7 Date JERRY - 7 assessed: 09/24/24 Source: Developed by Drs. Willard Nathan, Baylee Yuen, Brock Hennessy and colleagues, with an educational floresita from [employer]. Physical exam (Primary Care) Tobacco/Smoking Status: Tobacco use Status Tobacco use date assessed 09/24/24 10/01/24 08:33 Patient Tobacco Use Status Former Tobacco user 10/01/24 08:33 Tobacco use type Cigarette 10/01/24 08:33 e-Cigarette/Vaping Use Never Used 10/01/24 08:33 Thrive Assessment: Date of Thrive Assessment Date Thrive assessed 05/26/24 10/01/24 08:33 Currently or been in a relationship where the following occur: No concerns reported Telehealth Telehealth Telehealth Platform: [facility] Location of provider rendering services: practice address Location of patient: address on file Patient Identification confirmed using: Name, : Yes Telehealth method: voice only Patient verbally consented to treatment: Yes Patient verbally consented to billing insurance company: Yes Patient informed of any privacy concerns related to visit: Yes Minutes spent on Phone/Video with Pt.: 13 Coding Level of Care Code Tele Est Pt Level 3 (43152) Diagnoses Hypertension, essential I10 Lipid disorder E78.9 Other specified hypothyroidism E03.8 Hypothyroidism type: other Diabetes 1.5, managed as type 2 E13.9 LFT elevation R79.89 Assessment & Plan Assessment & Plan (1) Hypertension, essential: Code(s): I10 - Essential (primary) hypertension Category: Medical (2) Lipid disorder: Code(s): E78.9 - Disorder of lipoprotein metabolism, unspecified Category: Medical (3) Hypothyroidism: Code(s): E03.9 - Hypothyroidism, unspecified Category: Medical Qualifiers: Hypothyroidism type: other Qualified Code(s): E03.8 - Other specified hypothyroidism (4) Diabetes 1.5, managed as type 2: Comment: dx~2013-does not check glucose @ home-diet controlled-previously on metformin but had adverse reaction Code(s): E13.9 - Other specified diabetes mellitus without complications Category: Medical (5) LFT elevation: Code(s): R79.89 - Other specified abnormal findings of blood chemistry Category: Medical Plan History - The patient is a 78-year-old female presenting for follow-up care related to multiple chronic conditions. - She has Type 2 Diabetes Mellitus, managed with dietary control, with current hemoglobin A1c at 6.5, showing improvement over the previous year. - Chronic Kidney Disease is noted, with current lab results confirming stable yet slightly compromised renal function. - Dyslipidemia is present, with no current management due to previous adverse effects from medication; LDL cholesterol remains elevated. - Hypertension is managed with Losartan and Metoprolol, with a current blood pressure reading pending. - Vitamin D deficiency identified recently, supplementation initiated. - Liver enzymes are slightly elevated but stable and showing improvement from past evaluations. Problem List - Type 2 Diabetes Mellitus - Chronic Kidney Disease with stable function - Dyslipidemia - Hypertension - Vitamin D Deficiency - Elevated Liver Enzymes Patient Instructions - Continue taking prescribed vitamin D supplements as indicated by the pharmacy. - Monitor blood pressure regularly once a cuff is available. - Follow diet recommendations to manage blood sugar and cholesterol: prioritize fruits and vegetables, lean meats, and limit intake of white flour, sugar, and fatty foods. - Plan to revisit for lab work in four months. - Contact office if significant concerns arise before the next scheduled visit. - patient declined medication for high lipids, she has tried atrovastatin which caused dirrhea
== END 2024-10-01 09:36 | disposition home or self-care (01) ==
LOC: HO.HMCC 08:16
PROVIDERS: PCP Internal Medicine; Visit Provider Internal Medicine
DX: I10 Essential (primary) hypertension (principal); E78.9 Disorder of lipoprotein metabolism, unspecified; E03.8 Other specified hypothyroidism; E13.9 Other specified diabetes mellitus without complications; R79.89 Other specified abnormal findings of blood chemistry

== ENCOUNTER → 2024-10-01 08:15 | Outpatient (BNVA) | payer MEDICARE, SELFPAY | PROVIDERS: PCP Internal Medicine; Visit Provider Internal Medicine ==

== ENCOUNTER 2025-01-23 09:44 | Outpatient (REF) | payer MEDICARE, SELFPAY ==
[2025-01-23 11:15] LABS: MANUAL DIFF FLAG NO
[2025-01-23 11:21] LABS: Hematocrit 44.2 % (37.0-47.0); Hemoglobin 14.8 g/dl (12.0-16.0); Imm Gran Abs Auto 0.02 X10*3/uL (0.00-0.03); Imm Gran Pct Auto 0.4 % (0.0-0.4); Lymphocytes Absolute Auto 1.9 X10*3/uL (1.2-4.9); Mean Corpuscular HGB Conc 33.5 g/dl (31.0-35.0); Mean Corpuscular Hemoglobin 30.3 pg (27.0-33.0); Mean Corpuscular Volume 90.6 fL (80.0-98.0); NRBC Abs Auto 0.000 X10*3/uL (0.0-0.012); NRBC Pct Auto 0.0 /100WBC (0.0-0.2); Platelet Count 215 X10*3/uL (160-400); Red Blood Count 4.88 X10*6/uL (4.20-5.50); White Blood Count 5.7 X10*3/uL (4.8-10.8)
[2025-01-23 11:26] LABS: Hemoglobin A1C 194.0883 umol/L; Total Hemoglobin (HGBA1C) 3863.2466 umol/L
[2025-01-23 11:53] LABS: Alanine Aminotransferase 52 U/L (0-31); Albumin Level 4.2 g/dL (3.5-5.0); Alkaline Phosphatase 89 U/L (39-117); Anion Gap 11 (12-20); Aspartate Amino Transferase 51 U/L (5-31); Blood Urea Nitrogen 24 mg/dL (9-16); Calcium 8.6 mg/dL (8.4-10.2); Carbon Dioxide 24 mmol/L (22-29); Chloride 107 mmol/L (96-108); Cholesterol 298 mg/dL (<200); Estimated Glomerular Filt Rate 41; HDL Cholesterol 45 mg/dL (>40); Potassium 5.0 mmol/L (3.3-5.1); Sodium 137 mmol/L (135-145); Total Protein 7.6 g/dL (6.5-8.0); Triglycerides 204 mg/dL (<150)
== END 2025-01-23 09:45 | disposition home or self-care (01) ==
LOC: HO.HMGCLDS 09:44
PROVIDERS: PCP Internal Medicine; Visit Provider Internal Medicine
DX: I10 Essential (primary) hypertension (principal); E13.9 Other specified diabetes mellitus without complications; E03.8 Other specified hypothyroidism
CPT/HCPCS: 36415; 80053; 80061; 83036; 84443; 85025

== ENCOUNTER 2025-02-11 08:22 | Outpatient (AMB) | payer MEDICARE, SELFPAY ==
--- OUTSIDE RECORDS SUMMARY | 2025-02-11 08:29 | XMS_ITS | Patient Health Record ---
Author Organization [facility] Address [address] [place] [id number] Care Team Providers Care Gericare Aide Name Role Phone Willard Tyson Unavailable [phone] Reason For Referral No Information Plan Of Treatment No Information
--- NOTE | 2025-02-11 09:23 | MHC.PC.OV ---
Intake Visit Reasons: follow up Allergies metformin Adverse Reaction (Intermediate, Verified 10/01/24 08:35) Diarrhea Medication List - Last Reconciled 02/11/25 by Tyler Jones MD aspirin (Adult Low Dose Aspirin) 162 mg PO DAILY cholecalciferol (vitamin D3) 25 mcg PO DAILY 90 days losartan 100 mg PO DAILY metoprolol succinate ER 200 mg PO DAILY Synthroid (levothyroxine) 88 mcg PO DAILY 90 days NS Tobacco use date assessed: 09/24/24 Dental Screening Dental Screen Date: 09/24/24 HPI follow up HPI Details Chief Complaint The patient presents for follow-up of laboratory results and discussion regarding hypercholesterolemia treatment options. History of Present Illness The patient is an 79 year old female presenting with follow-up concerns for abnormal lab results. Hypercholesterolemia: - The patient has a history of elevated cholesterol levels. - Recent lab results show an increase in LDL cholesterol to 213 mg/dL, up from 180 mg/dL in September. - The patient had previously decided against pharmacological intervention for cholesterol management. - No reported symptoms directly associated with hypercholesterolemia. - Current status: The condition requires ongoing monitoring. Compromised Kidney Function: - The patient has a history of slightly compromised kidney function that has remained stable. - No associated symptoms reported. - Current status: Stable. Liver Enzyme Elevation: - Liver enzymes are slightly elevated. - No associated symptoms reported. - Current status: Stable. Diabetes Management: - Recent A1c levels are at 6.7%. - Discussed in the context of overall health management. - No associated symptoms or concerns reported. Hypertension: - The patient mentions ongoing blood pressure management. - Currently awaiting a blood pressure cuff for home monitoring. - No additional history provided in the current visit. Medical History: - Slightly compromised kidney function, stable. - Hypercholesterolemia. - Diabetes (A1c at 6.7%). - Elevated liver enzymes, stable. Medications: - Losartan 100 mg. - Metoprolol 200 mg. - Synthroid 88 mcg. Social History: - The patient mentions a desire to stay healthy to take care of her . - No other social determinants of health were discussed. Diagnostic Results: - Labs: - CBC: Normal. - Electrolytes: Normal. - Kidney function: Stable but slightly compromised. - Liver enzymes: Slightly elevated, stable. - A1c: 6.7%. - LDL cholesterol: 213 mg/dL. Problem List - Hypercholesterolemia - Slightly compromised kidney function - Elevated liver enzymes - Hypertension - Type 2 Diabetes Mellitus Patient Instructions - Continue taking Vitamin D supplements. - A message will be sent to the nurse to expedite the delivery of the blood pressure cuff. Medical Decision Making The patient presents for review of recent lab results and management planning for hypercholesterolemia, with additional monitoring of kidney and liver function. The patient has opted against medication for cholesterol management, despite an elevated LDL cholesterol level of 213 mg/dL. The stable condition of slightly compromised kidney function and elevated liver enzymes is acknowledged, and the patient understands the importance of ongoing monitoring. Diabetes management is noted with an A1c of 6.7%, suggesting reasonable control at present. Hypertension management is addressed with current medication, though blood pressure monitoring is pending due to delay in receiving home monitoring equipment. Continued supplement use for Vitamin D has been advised. Review of Systems - General: No fever no chills - Neurological: No headaches no dizziness - Ear nose throat: No sore throat no hearing difficulty no ear pain - Cardiovascular: No syncope, no chest pain, no palpitations - Gastrointestinal: No nausea vomiting or diarrhea - Endocrine: No polyuria polydipsia no heat intolerance - Genitourinary: No dysuria , no blood in urine [facility] Medical History Abnormal ECG Myocardial infarction Renal calculi CAD (coronary artery disease) Diabetes 1.5, managed as type 2 Hypothyroidism Lipid disorder Hypertension, essential Surgical History Hx laparoscopic cholecystectomy (03/05/22) Stented coronary artery History of knee replacement History of colonoscopy History of cataract surgery Family History Father HTN (hypertension) Myocardial infarction Mother No problems noted. Brother No problems noted. Sister No problems noted. Son No problems noted. Son No problems noted. Son No problems noted. Son No problems noted. Daughter No problems noted. Daughter No problems noted. Daughter No problems noted. Social History Household Members Other:: and grandson Housing: House Are you a primary critical care unit manager to a significant other at home: Yes ( is homebound) Do you presently have visiting nurse or other home services: No Alcohol intake: former Patient Tobacco Use Status: Former Tobacco user Tobacco use type: Cigarette e-Cigarette/Vaping Use: Never Used service: No Current occupational status: employed Cognitive needs: No Hearing needs: No Vision needs: Yes Questionnaire Thrive Questionnaire Date Thrive assessed: 05/26/24 JERRY-7 AMB Questionnaire JERRY-7 Date JERRY - 7 assessed: 09/24/24 Source: Developed by Drs. Willard Nathan, Baylee Yuen, Brock Hennessy and colleagues, with an educational floresita from [employer]. Physical exam (Primary Care) Tobacco/Smoking Status: Tobacco use Status Tobacco use date assessed 09/24/24 02/11/25 09:23 Patient Tobacco Use Status Former Tobacco user 02/11/25 09:23 Tobacco use type Cigarette 02/11/25 09:23 e-Cigarette/Vaping Use Never Used 02/11/25 09:23 Thrive Assessment: Date of Thrive Assessment Date Thrive assessed 05/26/24 02/11/25 09:23 Telehealth Telehealth Telehealth Platform: [facility] Location of provider rendering services: practice address Location of patient: address on file Patient Identification confirmed using: Name, : Yes Telehealth method: voice only Patient verbally consented to treatment: Yes Patient verbally consented to billing insurance company: Yes Patient informed of any privacy concerns related to visit: Yes Minutes spent on Phone/Video with Pt.: 13 Coding Level of Care Code Tele Est Pt Level 3 (73195) Complex EM visit Add On G2211 Diagnoses Hypertension, essential I10 Lipid disorder E78.9 Other specified hypothyroidism E03.8 Hypothyroidism type: other Diabetes 1.5, managed as type 2 E13.9 LFT elevation R79.89 Assessment & Plan Assessment & Plan (1) Hypertension, essential: Code(s): I10 - Essential (primary) hypertension Category: Medical (2) Lipid disorder: Code(s): E78.9 - Disorder of lipoprotein metabolism, unspecified Category: Medical (3) Hypothyroidism: Code(s): E03.9 - Hypothyroidism, unspecified Category: Medical Qualifiers: Hypothyroidism type: other Qualified Code(s): E03.8 - Other specified hypothyroidism (4) Diabetes 1.5, managed as type 2: Comment: dx~2013-does not check glucose @ home-diet controlled-previously on metformin but had adverse reaction Code(s): E13.9 - Other specified diabetes mellitus without complications Category: Medical (5) LFT elevation: Code(s): R79.89 - Other specified abnormal findings of blood chemistry Category: Medical Plan Chief Complaint The patient presents for follow-up of laboratory results and discussion regarding hypercholesterolemia treatment options. History of Present Illness The patient is an 79 year old female presenting with follow-up concerns for abnormal lab results. Hypercholesterolemia: - The patient has a history of elevated cholesterol levels. - Recent lab results show an increase in LDL cholesterol to 213 mg/dL, up from 180 mg/dL in September. - The patient had previously decided against pharmacological intervention for cholesterol management. - No reported symptoms directly associated with hypercholesterolemia. - Current status: The condition requires ongoing monitoring. Compromised Kidney Function: - The patient has a history of slightly compromised kidney function that has remained stable. - No associated symptoms reported. - Current status: Stable. Liver Enzyme Elevation: - Liver enzymes are slightly elevated. - No associated symptoms reported. - Current status: Stable. Diabetes Management: - Recent A1c levels are at 6.7%. - Discussed in the context of overall health management. - No associated symptoms or concerns reported. Hypertension: - The patient mentions ongoing blood pressure management. - Currently awaiting a blood pressure cuff for home monitoring. - No additional history provided in the current visit. Medical History: - Slightly compromised kidney function, stable. - Hypercholesterolemia. - Diabetes (A1c at 6.7%). - Elevated liver enzymes, stable. Medications: - Losartan 100 mg. - Metoprolol 200 mg. - Synthroid 88 mcg. Social History: - The patient mentions a desire to stay healthy to take care of her . - No other social determinants of health were discussed. Diagnostic Results: - Labs: - CBC: Normal. - Electrolytes: Normal. - Kidney function: Stable but slightly compromised. - Liver enzymes: Slightly elevated, stable. - A1c: 6.7%. - LDL cholesterol: 213 mg/dL. Problem List - Hypercholesterolemia - Slightly compromised kidney function - Elevated liver enzymes - Hypertension - Type 2 Diabetes Mellitus Patient Instructions - Continue taking Vitamin D supplements. - A message will be sent to the nurse to expedite the delivery of the blood pressure cuff. Medical Decision Making The patient presents for review of recent lab results and management planning for hypercholesterolemia, with additional monitoring of kidney and liver function. The patient has opted against medication for cholesterol management, despite an elevated LDL cholesterol level of 213 mg/dL. The stable condition of slightly compromised kidney function and elevated liver enzymes is acknowledged, and the patient understands the importance of ongoing monitoring. Diabetes management is noted with an A1c of 6.7%, suggesting reasonable control at present. Hypertension management is addressed with current medication, though blood pressure monitoring is pending due to delay in receiving home monitoring equipment. Continued supplement use for Vitamin D has been advised.
== END 2025-02-11 09:44 | disposition home or self-care (01) ==
LOC: HO.HMCC 08:22
PROVIDERS: PCP Internal Medicine; Visit Provider Internal Medicine
DX: I10 Essential (primary) hypertension (principal); E78.9 Disorder of lipoprotein metabolism, unspecified; E03.8 Other specified hypothyroidism; E13.9 Other specified diabetes mellitus without complications; R79.89 Other specified abnormal findings of blood chemistry

== ENCOUNTER 2025-07-06 10:04 | Outpatient (AMB) | payer MEDICARE, SELFPAY ==
[2025-07-06 10:10] VITALS: BP 132/76; PULSE 70; O2SAT 97; BMI 34.6
--- NOTE | 2025-07-06 10:10 | MHC.PC.OV ---
Vital Signs 07/06/25 10:10 Height 5 ft 3 in Weight 195 lb 6 oz BMI 34.6 BP 132/76 Blood Pressure Location Lt brachial Position Sitting Pulse 70 Pulse Source Pulse Oximeter Pulse Oximetry (%) 97 Oxygen Delivery Method Room Air Intake Visit Reasons: 4 mths F/U Allergies metformin Adverse Reaction (Intermediate, Verified 07/06/25 10:13) Diarrhea Medication List - Last Reconciled 07/06/25 by Tyler Jones MD aspirin (Adult Low Dose Aspirin) 162 mg PO DAILY cholecalciferol (vitamin D3) 25 mcg PO DAILY 90 days losartan 100 mg PO DAILY metoprolol succinate ER 200 mg PO DAILY Synthroid (levothyroxine) 88 mcg PO DAILY 90 days NS Tobacco use date assessed: 07/06/25 Fall risk assessment: No Falls in past year Last assessed Fall Risk: 07/06/25 Dental Screening Dental Screen Date: 07/06/25 Did you have a dental visit in the last 12 months?: No Did you have a dental problem in the last 6 months where you did not have access to dental care?: No Was dental information given to patient?: Patient has dentist HPI HPI Comments History of Present Illness Details History of Present Illness The patient is an 79 year old female presenting for a follow-up visit for chronic condition management and a complaint of urinary incontinence. Urinary Incontinence: - The patient reports that she is becoming progressively more incontinent. - Symptoms occur when she stands up after sitting and relaxing, and she also experiences urgency upon approaching the bathroom. - She manages the incontinence by wearing pads. - She has a history of 7 natural births over 12 years, which may be a contributing factor to pelvic muscle weakness. - She declined a referral to a urogynecologist, stating that she is coping with the symptoms. Chronic Kidney Disease: - The patient has a history of compromised kidney function that requires blood test monitoring every six months. - Her last lab work was performed in January. Hypertension: - The patient's hypertension is managed with losartan and metoprolol 200 mg. Hypothyroidism: - The patient takes Synthroid 88 mcg for hypothyroidism. Diabetes Mellitus: - The patient confirmed a diagnosis of diabetes. - A unvmz-jn-gqcx A1c reading during the visit was 6.5. Vitamin D Deficiency: - The patient takes an udwv-sud-uwpygzs vitamin D supplement but reports forgetting to take it recently. Medical History: - Chronic Kidney Disease - Hypertension - Hypothyroidism - Diabetes Mellitus - History of 7 natural births Medications: - Losartan for hypertension - Metoprolol 200 mg for hypertension - Synthroid 88 mcg for hypothyroidism - Vitamin D, [id number] Social History: - The patient is the primary caregiver for her , who is nearly wheelchair-bound and requires assistance with standing and bathing. - Her 35-year-old grandson resides with her and helps with her 's care in the morning and at night. - The patient recently experienced the loss of a close friend and coworker in May. Family History: - Diabetes: Two sons, , and 's mother have a history of diabetes. Diagnostic Results: - Blood Pressure: 132/76 mmHg - Jjwqo-nz-iavf A1c: 6.5 PFSH Medical History Abnormal ECG Myocardial infarction Renal calculi CAD (coronary artery disease) Diabetes 1.5, managed as type 2 Hypothyroidism Lipid disorder Hypertension, essential Surgical History Hx laparoscopic cholecystectomy (03/05/22) Stented coronary artery History of knee replacement History of colonoscopy History of cataract surgery Family History Father HTN (hypertension) Myocardial infarction Mother No problems noted. Brother No problems noted. Sister No problems noted. Son No problems noted. Son No problems noted. Son No problems noted. Son No problems noted. Daughter No problems noted. Daughter No problems noted. Daughter No problems noted. Social History Household Members Other:: and grandson Housing: House Are you a primary progressive care unit registered nurse to a significant other at home: Yes ( is homebound) Do you presently have visiting nurse or other home services: No Alcohol intake: former Patient Tobacco Use Status: Former Tobacco user Tobacco use type: Cigarette e-Cigarette/Vaping Use: Never Used service: No Current occupational status: employed Cognitive needs: No Hearing needs: No Vision needs: Yes Questionnaire PHQ-9 Over the last 2 weeks, how often have you been bothered by any of the following problems? 1. Little interest or pleasure in doing things: not at all 2. Feeling down, depressed, or hopeless: not at all 3. Trouble falling or staying asleep, or sleeping too much: not at all 4. Feeling tired or having little energy: not at all 5. Poor appetite or overeating: not at all 6. Feeling bad about yourself - or that you are a failure or have let yourself or your family down: not at all 7. Trouble concentrating on things, such as reading the newspaper or watching television: not at all 8. Moving or speaking so slowly that other people could have noticed. Or the opposite - being so fidgety or restless that you have been moving around a lot more than usual: not at all 9. Thoughts that you would be better off or of hurting yourself in some way: not at all Total score: 0 Depression Screening Interpretation: Negative Depression Screening Done: Yes 71622 - PHQ-9 Billing: Yes Source: Developed by Drs. Willard Nathan, Baylee Yuen, Brock Hennessy and colleagues, with an educational floresita from [employer]. Thrive Questionnaire Date Thrive assessed: 05/26/24 I am a: Patient What is your living situation today?: I have a steady place to live Within the past 12 months, did the food you bought not last and you didn't have the money to get more?: Never true Within the past 12 months, did you worry whether your food would run out before you got money to buy more?: Never true Do you have trouble paying for medicines?: No Do you have trouble getting transportation to medical appointments?: No Do you have trouble paying your heating and electricity bill?: No Do you have trouble taking care of your child, family member or friend?: No Do you have trouble with day-to-day activities such as bathing, preparing meals, shopping, managing finances, etc.?: No Are you currently unemployed and looking for a job?: No Are you interested in more education?: No Please select the resources that you would like help with: None Currently or been in a relationship where the following occur: No concerns reported THRIVE Score: 0 AUDIT C Alcohol Use Questionnaire (AUDIT-C) 1. How often do you have a drink containing alcohol?: Never 3. How often do you have six or more drinks on one occasion?: Never Total Score: 0 Score Reviewed/Action Taken: Yes JERRY-7 AMB Questionnaire JERRY-7 Date JERRY - 7 assessed: 09/24/24 Feeling nervous, anxious, or on edge: 0 = Not at all Not being able to stop or control worryin = Not at all Worrying too much about different things: 0 = Not at all Trouble relaxin = Not at all Being so restless that it is hard to sit still: 0 = Not at all Becoming easily annoyed or irritable: 0 = Not at all Feeling afraid as if something awful might happen: 0 = Not at all Total JERRY-7 score (0-4 normal; 5-9 mild; 10-14 moderate; 15-21 severe): 0 Source: Developed by Drs. Willard Nathan, Baylee Yuen, Brock Hennessy and colleagues, with an educational floresita from [employer]. JERRY-7 Assessment Billing JERRY-7 Assessment Tool: JERRY-7 Assessment 37665 Review of Systems Narrative Review of Systems . - General: No fever no chills - Neurological: No headaches no dizziness - Ear nose throat: No sore throat no hearing difficulty no ear pain - Cardiovascular: No syncope, no chest pain, no palpitations - Gastrointestinal: No nausea vomiting or diarrhea - Endocrine: No polydipsia no heat intolerance - Genitourinary: No dysuria , no blood in urine Physical exam (Primary Care) Vital Signs: Last Vital Signs Pulse 70 07/06/25 10:10 BP 132/76 07/06/25 10:10 Pulse Ox 97 07/06/25 10:10 Oxygen Delivery Method Room Air 07/06/25 10:10 BMI result Body Mass Index 34.6 Tobacco/Smoking Status: Tobacco use Status Tobacco use date assessed 07/06/25 07/06/25 10:13 Patient Tobacco Use Status Former Tobacco user 07/06/25 10:13 Tobacco use type Cigarette 07/06/25 10:13 e-Cigarette/Vaping Use Never Used 07/06/25 10:13 PHQ-9: PHQ-9 Score PHQ-9: Total score 0 07/06/25 10:13 Depression Screening Interpretation: Negative Thrive Assessment: Date of Thrive Assessment Date Thrive assessed 05/26/24 07/06/25 10:13 Currently or been in a relationship where the following occur: No concerns reported Narrative Physical Exam - General: No acute distress - HEENT: No acute findings - Neck: Supple - Respiratory system: Able to talk in full sentences, no audible wheeze - Cardiovascular: S1-S2 regular in rate and rhythm - Gastrointestinal: No pain - Extremities: No new findings - REMEDIAL READING TEACHER: Alert awake oriented x3 motor intact - Skin: Normal turgor Results AMB Hemoglobin A1c AMB Hemoglobin A1c 6.5 % Last Edit by Kimberly Spence CMA on 07/06/25 10:26 Results Reviewed Results Reviewed: Laboratory Last Values Hgb A1c (Clinic) 6.5 % (4.0-6.0) H 07/06/25 10:25 Coding Level of Care Code Est Pt Level 4 (11407) Add On Problem Visit Only Diagnoses Hypertension, essential I10 Hypertensive nephropathy I12.9 Diabetes 1.5, managed as type 2 E13.9 Lipid disorder E78.9 Other specified hypothyroidism E03.8 Hypothyroidism type: other Coronary artery disease involving [place] coronary artery of [place] heart without angina pectoris I25.10 Associated angina: without angina Coronary Disease-Associated Artery/Lesion type: [place] artery [place] vs. transplanted heart: [place] heart LFT elevation R79.89 Caregiver role strain Z63.8 Additional Codes PHQ-9 - 75360 - PHQ-9 Billing: Yes ([id number]) JERRY-7 Assessment Billing - JERRY-7 Assessment Tool: JERRY-7 Assessment 63743 ([id number]) Assessment & Plan Assessment & Plan (1) Hypertension, essential: Code(s): I10 - Essential (primary) hypertension Category: Medical (2) Hypertensive nephropathy: Code(s): I12.9 - Hypertensive chronic kidney disease with stage 1 through stage 4 chronic kidney disease, or unspecified chronic kidney disease Category: Medical (3) Diabetes 1.5, managed as type 2: Comment: dx~2013-does not check glucose @ home-diet controlled-previously on metformin but had adverse reaction Code(s): E13.9 - Other specified diabetes mellitus without complications Category: Medical (4) Lipid disorder: Code(s): E78.9 - Disorder of lipoprotein metabolism, unspecified Category: Medical (5) Hypothyroidism: Code(s): E03.9 - Hypothyroidism, unspecified Category: Medical Qualifiers: Hypothyroidism type: other Qualified Code(s): E03.8 - Other specified hypothyroidism (6) CAD (coronary artery disease): Comment: RCA drug-eluting stent. Mid LAD 80% disease, stable without anginal symptoms. Treated medically Code(s): I25.10 - Atherosclerotic heart disease of [place] coronary artery without angina pectoris Category: Medical Qualifiers: Associated angina: without angina Coronary Disease-Associated Artery/Lesion type: [place] artery [place] vs. transplanted heart: [place] heart Qualified Code(s): I25.10 - Atherosclerotic heart disease of [place] coronary artery without angina pectoris (7) LFT elevation: Code(s): R79.89 - Other specified abnormal findings of blood chemistry Category: Medical (8) Caregiver role strain: Code(s): Z63.8 - Other specified problems related to primary support group Category: Medical Plan Problem List - Urinary incontinence - Chronic Kidney Disease - Hypertension - Hypothyroidism - Diabetes Mellitus - Caregiver role Plan - The patient will undergo a blood test today to monitor kidney function and A1c levels; no fasting is required. - Continue current medications, including losartan, metoprolol, and Synthroid. - Encouraged to maintain adherence with pnoa-ipq-pyhnwrd vitamin D supplementation. - For urinary incontinence, the patient will continue using pads; she declined a referral to urogynecology at this time. - It was suggested that the patient should start the process of acquiring a hospital bed for her . - Scheduled a follow-up appointment in 4 months. Orders: Orders LDL Cholesterol Direct Today E03.8 - Other specified hypothyroidism, E13.9 - Other specified diabetes mellitus without complications, E78.9 - Disorder of lipoprotein metabolism, unspecified, I10 - Essential (primary) hypertension, I25.10 - Atherosclerotic heart disease of [place] coronary artery without angina pectoris, R79.89 - Other specified abnormal findings of blood chemistry TSH reflex Free T4 Today E03.8 - Other specified hypothyroidism, E13.9 - Other specified diabetes mellitus without complications, E78.9 - Disorder of lipoprotein metabolism, unspecified, I10 - Essential (primary) hypertension, I25.10 - Atherosclerotic heart disease of [place] coronary artery without angina pectoris, R79.89 - Other specified abnormal findings of blood chemistry Complete Blood Count Auto Diff Today E03.8 - Other specified hypothyroidism, E13.9 - Other specified diabetes mellitus without complications, E78.9 - Disorder of lipoprotein metabolism, unspecified, I10 - Essential (primary) hypertension, I25.10 - Atherosclerotic heart disease of [place] coronary artery without angina pectoris, R79.89 - Other specified abnormal findings of blood chemistry Comprehensive Met. Panel Today E03.8 - Other specified hypothyroidism, E13.9 - Other specified diabetes mellitus without complications, E78.9 - Disorder of lipoprotein metabolism, unspecified, I10 - Essential (primary) hypertension, I25.10 - Atherosclerotic heart disease of [place] coronary artery without angina pectoris, R79.89 - Other specified abnormal findings of blood chemistry AMB Hemoglobin A1c Today Z13.9 - Encounter for screening, unspecified
--- OUTSIDE RECORDS SUMMARY | 2025-07-06 13:16 | XMS_ITS | Patient Health Record ---
Author Organization [facility] Address [address] [place] [id number] Care Team Providers Care Manual Tester Name Role Phone Willard Tyson Unavailable [phone] Reason For Referral No Information Plan Of Treatment No Information
== END 2025-07-06 10:25 | disposition home or self-care (01) ==
LOC: HO.HMCC 10:05
PROVIDERS: PCP Internal Medicine; Visit Provider Internal Medicine
DX: I10 Essential (primary) hypertension (principal); I12.9 Hypertensive chronic kidney disease with stage 1 through stage 4 chronic kidney disease, or unspecified chronic kidney disease; E13.9 Other specified diabetes mellitus without complications; E78.9 Disorder of lipoprotein metabolism, unspecified; E03.8 Other specified hypothyroidism; I25.10 Atherosclerotic heart disease of native coronary artery without angina pectoris; R79.89 Other specified abnormal findings of blood chemistry; Z63.8 Other specified problems related to primary support group; Z13.9 Encounter for screening, unspecified

== ENCOUNTER 2025-07-06 10:04 | Outpatient (REF) | payer MEDICARE, SELFPAY ==
[2025-07-06 13:44] LABS: MANUAL DIFF FLAG NO
[2025-07-06 13:56] LABS: Hematocrit 47.5 % (37.0-47.0); Hemoglobin 15.6 g/dl (12.0-16.0); Imm Gran Abs Auto 0.02 X10*3/uL (0.00-0.03); Imm Gran Pct Auto 0.3 % (0.0-0.4); Lymphocytes Absolute Auto 1.5 X10*3/uL (1.2-4.9); Mean Corpuscular HGB Conc 32.8 g/dl (31.0-35.0); Mean Corpuscular Hemoglobin 30.2 pg (27.0-33.0); Mean Corpuscular Volume 91.9 fL (80.0-98.0); NRBC Abs Auto 0.000 X10*3/uL (0.0-0.012); NRBC Pct Auto 0.0 /100WBC (0.0-0.2); Platelet Count 267 X10*3/uL (160-400); Red Blood Count 5.17 X10*6/uL (4.20-5.50); White Blood Count 6.2 X10*3/uL (4.8-10.8)
[2025-07-06 14:54] LABS: Alanine Aminotransferase 36 U/L (0-31); Albumin Level 4.3 g/dL (3.5-5.0); Alkaline Phosphatase 93 U/L (39-117); Anion Gap 13 (12-20); Aspartate Amino Transferase 38 U/L (5-31); Blood Urea Nitrogen 25 mg/dL (9-16); Calcium 9.2 mg/dL (8.4-10.2); Carbon Dioxide 25 mmol/L (22-29); Chloride 106 mmol/L (96-108); Estimated Glomerular Filt Rate 36; Potassium 4.7 mmol/L (3.3-5.1); Sodium 139 mmol/L (135-145); Total Protein 7.5 g/dL (6.5-8.0)
== END 2025-07-06 10:05 | disposition home or self-care (01) ==
LOC: HO.HMGCLDS 10:04
PROVIDERS: PCP Internal Medicine; Visit Provider Internal Medicine
DX: E78.9 Disorder of lipoprotein metabolism, unspecified (principal); I25.10 Atherosclerotic heart disease of native coronary artery without angina pectoris; E03.8 Other specified hypothyroidism; R79.89 Other specified abnormal findings of blood chemistry; I12.9 Hypertensive chronic kidney disease with stage 1 through stage 4 chronic kidney disease, or unspecified chronic kidney disease; E11.22 Type 2 diabetes mellitus with diabetic chronic kidney disease; N18.9 Chronic kidney disease, unspecified; Z63.8 Other specified problems related to primary support group; Z87.891 Personal history of nicotine dependence
CPT/HCPCS: 36415; 80053; 83036; 83721; 84443; 85025; 96127; 99212